=== PATIENT | male | born 1975 | race Caucasian/White ===

== ENCOUNTER 2020-08-14 14:43 | Emergency (ER) | payer SELFPAY ==
[2020-08-14 14:44] VITALS: BP 148/99; PULSE 112; RESP 23; TEMP 36.6; O2SAT 96; BMI 31.5
--- NOTE | 2020-08-14 14:48 | CT_ITS ---
STUDY: CT BRAIN WITHOUT CONTRAST REASON FOR EXAM: Male, 45 years old. Head injury RADIATION DOSAGE (If Supplied By Facility): CTDIvol = ( 44.99 ) mGy, DLP = ( 829.85 ) mGycm TECHNIQUE: Transaxial CT imaging of the brain was performed without administration of intravenous contrast material. Individualized dose optimization techniques were used for this CT. COMPARISON: No relevant priors. FINDINGS: Moderate size scalp hematoma overlying the right parietal bone. Normal calvarium. Normal size ventricles and extra-axial spaces for the patient''s age. Normal white matter tracts of the cerebral hemispheres. Normal basal ganglia and thalami. Normal brainstem. Normal cerebellum. There is no intracranial hemorrhage. There are no findings of an acute ischemic infarction. Normal visualized paranasal sinuses. CT/Brain/Head without Contrast IMPRESSION: Moderate sized scalp hematoma overlying the right parietal bone. Electronically Signed: Ravi Rios MD at 15:41 EDT , Service support ,
--- NOTE | 2020-08-14 14:49 | CT_ITS ---
STUDY: CT CERVICAL SPINE WITHOUT CONTRAST REASON FOR EXAM: Male, 45 years old. Neck pain from fall RADIATION DOSAGE (If Supplied By Facility): CTDIvol = ( 22.22 ) mGy, DLP = ( 511.96 ) mGycm TECHNIQUE: High resolution transaxial imaging was performed without contrast material. Sagittal and coronal images were reconstructed. Individualized dose optimization techniques were used for this CT. COMPARISON: None FINDINGS: Normal craniovertebral junction. Normal anterior atlantoaxial articulation. Normal odontoid process. There is straightening of the normal cervical lordosis. Normal vertebral bodies and posterior osseous elements. C2-3: Normal endplates. Normal disc height and morphology. Normal central canal and intervertebral neuroforamina. C3-4: Normal endplates. Normal disc height and morphology. Normal central canal and intervertebral neuroforamina. C4-5: Normal endplates. Normal disc height and morphology. Normal central canal and intervertebral neuroforamina. C5-6: Moderate degree of disc space narrowing with anterior spondylosis. C6-7: Normal endplates. Normal disc height and morphology. Normal central canal and intervertebral neuroforamina. C7-T1: Normal endplates. Normal disc height and morphology. Normal central canal and intervertebral neuroforamina. Normal visualized soft tissue structures. CT/Spine Cervical without Contras IMPRESSION: Moderate degree of disc space narrowing and spondylosis at the C5-C6 level. Electronically Signed: Ravi Rios MD at 15:42 EDT , Service support ,
--- NOTE | 2020-08-14 14:53 | ED.VIS.GEN ---
History of Present Illness Chief Complaint: Seizure Informant: Patient Narrative: 45-year-old male with past medical history of epilepsy presents with concern for head injury and seizure. Patient was at work when he fell and began having a seizure lasting less than 1 minute. EMS was called after there was significant blood on scene following a scalp laceration. Patient states he takes Keppra and has been compliant with his medication. Denies any recent changes to his medication. Admits to a headache. Denies any vision change. Does admit to neck pain. Patient is not on anticoagulation. Past Medical History - Allergies and Home Meds Allergies/Adverse Reactions: Allergies amoxicillin Allergy (Verified 08/14/20 14:44) PT UNSURE OF REACTION Primary Care Physician: NOT,DEFINED [Primary Care Provider] - Prior records reviewed: Yes Past Medical History: - - seizures Surgical History: no surgical history Lives: Alone Smoking Status: Current every day smoker Alcohol: None Drugs: None Review of Systems General: Denies: Chills, Fever, Sweats Eyes: Denies: Visual changes - bilaterally, Diplopia ENT: Denies: Rhinorrhea, Sore throat Cardiovascular: Denies: Chest pain, Palpitations Respiratory: Denies: Dyspnea, Cough, Dyspnea on exertion Gastrointestinal: Denies: Abdominal pain, Nausea, Vomiting, Diarrhea, Melena, Hematochezia Genitourinary: Denies: Dysuria, Hematuria, Frequency Musculoskeletal: Denies: Back pain, Extremity Pain Skin: Reports: Wounds. Denies: Rash Neurological: Reports: - - seizure. Denies: Headache, Weakness, Numbness Physical Exam Vital Signs/Narrative: Vital Signs Temp Pulse Resp BP Pulse Ox 08/14/20 14:44 98 F 112 H 23 H 148/99 H 96 Inital Vital Signs reviewed: Yes General: Well nourished, Well developed, No Acute Distress Head: Normocephalic, - - large scalp laceration Eyes: Perrl, EOMI ENT: Moist mucous membranes, No rhinorrhea Neck: Supple, Nontender Cardiovascular: Regular rate, Regular rhythm, No murmurs Respiratory: No distress, CTA bilaterally, Chest nontender Abdomen: Soft, Nontender, Nondistended, Normal bowel sounds Back: Nontender, Normal Inspection Extremities: Nontender, No edema Skin: Normal color, No rash Neurological: Alert, Oriented x3, Cranial nerves II-XII grossly intact, Normal Strength, Normal Sensation Psychological: Normal affect, Normal Mood Diagnostic/Tx/Re-eval Clinical Impression(s) from Imaging Studies Brain CT 08/14/20 14:48 IMPRESSION: Moderate sized scalp hematoma overlying the right parietal bone. Electronically Signed: Ravi Rios MD at 15:41 EDT , Service support , Cervical Spine CT 08/14/20 14:49 IMPRESSION: Moderate degree of disc space narrowing and spondylosis at the C5-C6 level. Electronically Signed: Ravi Rios MD at 15:42 EDT , Service support , Laboratory Data 08/14/20 08/14/20 15:00 15:00 WBC 8.6 RBC 3.82 L Hgb 13.5 Hct 40.3 MCV 105.5 H MCH 35.3 H MCHC 33.5 RDW Std Deviation 47.1 H RDW Coeff of Kendall 12.0 Plt Count 156 MPV 10.4 Immature Gran % (Auto) 0.400 Neut % (Auto) 79.0 H Lymph % (Auto) 14.4 L Swain % (Auto) 5.8 Eos % (Auto) 0.0 Baso % (Auto) 0.4 Absolute Neuts (auto) 6.8 Absolute Lymphs (auto) 1.23 Nucleated RBC % 0 Sodium 134 L Potassium 3.8 Chloride 98 Carbon Dioxide 17.0 L Anion Gap 19 H BUN 7 Creatinine 1.19 Estim Creat Clear Calc 87.85 Est GFR (MDRD) Af Amer 86 Est GFR (MDRD) Non-Af 71 BUN/Creatinine Ratio 5.9 L Glucose 148 H Calcium 8.7 Total Bilirubin 0.60 AST 154 H ALT 93 H Alkaline Phosphatase 68 Total Protein 7.7 Albumin 3.5 Globulin 4.2 Albumin/Globulin Ratio 0.8 L - Medical Decision Making Patient appears well and nontoxic. CT brain and cervical spine shows no acute process. Patient had his c-collar cleared by myself. Patient has approximately 8 to 9 cm parietal scalp laceration. This was thoroughly cleansed. Patient had his tetanus updated. Seven 2-0 sutures were placed in a simple interrupted fashion without difficulty. The wound was anesthetized with 1% lidocaine with epinephrine using 20 mL of the solution. Spoke with the patient's neurologist Dr. Kapoor who advised increasing his Keppra to 1000 twice daily. Patient will follow up in the next 3 to 5 days. Asked to return for vomiting, further seizure activity, confusion. Advised on not bathing, swimming, driving, any other activities where a seizure might put his life at risk. Stable at time of discharge. Impression: 1. Breakthrough seizure 2. Closed head injury 3. Scalp laceration?8 cm?7 interrupted sutures ED Disposition - Plan for ED Patient: Disposition: Home or Assisted Living Instructions: ED Seizure, Recurrent (Adult), ED Laceration Scalp Sutr Stap Ch Referrals: Matthew Kapoor, DO [NON-STAFF] - 3-5 Days Additional Instructions: Please increase your Keppra from 500 twice a day to 1000 mg twice a day.
[2020-08-14] MEDS: 0.9% Normal Saline 1,000 ML 1000 ML IV (15:02)
[2020-08-14] MEDS: Morphine 4 MG/ML Syringe IV (15:08)
[2020-08-14] MEDS: Ondansetron 4 MG/2 ML Vial IV (15:08)
[2020-08-14] MEDS: Diphth,Pertuss(Acell),Tet Vac 0.5 ML Vial IM (15:08)
[2020-08-14 15:10] VITALS: BP 141/87; PULSE 102; RESP 18; O2SAT 95
[2020-08-14 15:20] LABS: Absolute Lymphocyte Count 1.23 X10^3/uL (0.83-4.51); Absolute Neutrophil Count 6.8 X10^3/uL (2.0-7.7); Basophil# 0.03 X10^3/uL; Basophil% 0.4 % (0-1); Hematocrit 40.3 % (40-54); Hemoglobin 13.5 g/dL (13.0-16.5); Lymphocyte # 1.23 X10^3/ul (0.83-4.51); Lymphocyte % 14.4 % (19-41); Mean Corp Hgb Conc 33.5 g/dL (32-36); Mean Corpuscular Hgb 35.3 pg (27.0-32.0); Mean Corpuscular Volume 105.5 fL (80-94); Mean Platelet Vol. 10.4 fl (6.2-12.0); Monocyte% 5.8 % (0-10); NRBC Flagged by Analyzer 0 % (0-5); Neutrophil # 6.77 X10^3/uL (2.7-7.7); Platelet Count 156 K/mm3 (150-450); RBC Distribution Width SD 47.1 fl (35.1-43.9); Red Blood Count 3.82 M/mm3 (4.6-6.2); White Blood Count 8.6 K/mm3 (4.4-11.0)
[2020-08-14 15:41] LABS: ALB/GLOB Ratio 0.8 RATIO (0.9-2.4); AST(SGOT) 154 U/L (15-37); Alanine Aminotransfer ALT/SGPT 93 U/L (16-61); Albumin, Serum 3.5 g/dL (3.2-5.0); Alkaline Phosphatase 68 U/L (45-117); Anion Gap 19 (5-15); BUN 7 mg/dL (7-18); BUN/Creat Ratio 5.9 RATIO (10-20); Calcium,Total 8.7 mg/dL (8.5-10.1); Chloride 98 mmol/L (98-107); Creatinine, Serum 1.19 mg/dL (0.70-1.30); EST Glomerular Filtration Rate 71 mL/min (>60); Est Glom Filt Rate - Afr Amer 86 mL/min (>60); Estimated Creatinine Clearance 87.85 ml/min; Globulin 4.2 g/dL (2.2-4.2); Glucose 148 mg/dL (74-106); Potassium 3.8 mmol/L (3.5-5.1); Protein, Total 7.7 g/dL (6.4-8.2); Sodium Level 134 mmol/L (136-145)
[2020-08-14] MEDS: Lidocaine 1% /Epi 1:100 (20ml) 20 ML Vial 10 ML INFILT (16:13)
[2020-08-14 16:52] VITALS: BP 155/84; PULSE 86; RESP 18; O2SAT 98
[2020-08-14 17:36] VITALS: BP 141/70; PULSE 100; RESP 18; O2SAT 100
[2020-08-18 17:30] LABS: KEPPRA (LEVETIRACETAM) 5.1 ug/mL (10.0-40.0)
== END 2020-08-14 17:38 | disposition home or self-care (01) ==
PROVIDERS: Emergency Provider Emergency Medicine
DX: S01.01XA Laceration without foreign body of scalp, initial encounter (principal); G40.909 Epilepsy, unspecified, not intractable, without status epilepticus; F17.200 Nicotine dependence, unspecified, uncomplicated; Z23 Encounter for immunization; W18.30XA Fall on same level, unspecified, initial encounter; Y93.89 Activity, other specified; Y92.89 Other specified places as the place of occurrence of the external cause; Y99.8 Other external cause status
CPT/HCPCS: 12004; 70450; 72125; 80053; 80177; 85025; 90471; 90715; 96361; 96374; 96375; 99285; J2405

== ENCOUNTER 2022-04-07 19:29 | Inpatient (IN) | payer MEDICAID, SELFPAY ==
[2022-04-07 19:32] VITALS: BMI 25.6
[2022-04-07 19:46] VITALS: PULSE 88
[2022-04-07 19:55] VITALS: BP 127/89; PULSE 92; RESP 18; TEMP 36.9; O2SAT 100
[2022-04-07 21:00] LABS: Hematocrit 18.4 % (40-54)
--- NOTE | 2022-04-07 21:38 | PCM.HP.STD ---
HPI - General General Date of Admission: 04/07/22 Date of Service: 04/07/22 Chief Complaint: Shortness of breath HPI Narrative CHRISTI GALINDO, is a 46 M with a significant history of alcoholism; traumatic brain injury; seizures and PTSD who presented to outside hospital with shortness of breath. Reportedly his shortness of breath increased with mild exertion. Associated with his symptoms is lightheadedness; presyncope and diaphoresis. He reports anorexia. His symptoms started about 5 days ago and it is been progressively getting worse. He reported [place] the airport and found [place] got delayed. He reported that while in a queue at the hospital some 2 nurses who were behind him found that he was diaphoretic. He reports going to clinic in [place]. On the day of presentation patient was sent to [facility] ED by paramedics. Reportedly at [facility] ED patient was found to be anemic with a hemoglobin of 5.5. Stool guaic was negative. Magnesium was low for which reason patient had a 4 g of magnesium at outside hospital. Sodium was 132. Potassium was 2.6 and and reportedly patient was given IV potassium at outside hospital. Patient was tachycardic but responded to IV fluid boluses. CMP showed elevated AST of 163 (normal 15-37); normal ALT; total bilirubin of 1.7 (normal 0.2-1); direct bilirubin of 0.6 (normal 0-0.2). Lactic acid was 6. Ammonia was 40 3 (normal 11-32). Lipase 446. Alcohol level was 9. PTT was 27.2 (normal 25.4-38.4). INR was 1.3 (normal 0.8-1.2); PT was 14.7 (normal 9.3-14.1). Patient was given thiamine and Ativan IV. Patient was transfused with blood. Reportedly because of possible blood reaction he did not receive all red blood cell products that was intended for him. [facility] Medical History Alcohol abuse Cirrhosis GERD (gastroesophageal reflux disease) Migraines Seizures Smoker Home Medications levetiracetam 500 mg tablet 500 mg PO BID seizures 08/14/20 [History Last Taken 04/07/22 17:40] Allergy/AdvReac Type Severity Reaction Status Date / Time amoxicillin Allergy Anaphylaxis Verified 04/07/22 19:35 bee venom protein (honey bee) Allergy Hives Verified 04/07/22 19:35 [bee sting] Family History Other Cancer Surgical History History of herniorrhaphy History of removal of thyroglossal duct cyst Social History Smoking Status: Heavy Smoker (>10/day) ROS ROS Narrative Pertinent positives and pertinent negatives as noted in HPI. All other systems were reviewed and are negative Vital Signs Vital Signs Vital Signs: 04/07/22 19:55 04/07/22 19:59 Temperature 98.4 F Temperature Source Oral Pulse Rate 92 Respiratory Rate 18 Respiratory Effort Normal Non-Labored Respiratory Depth Normal Respiratory Pattern Normal Blood Pressure 127/89 H Blood Pressure Mean 101 Blood Pressure Source Monitor Blood Pressure Position Semi-Fowlers Blood Pressure Location Right Arm Pulse Ox 100 Oxygen Delivery Method Room Air Room Air Weight Weight: 88.1 kg Body Mass Index (BMI) 25.6 Physical Exam Narrative Physical exam: General: Well-nourished, well-developed. Head: Normocephalic, atraumatic, no tenderness Eyes: Vision is grossly intact. EOMI ENT, no trauma, moist mucous membranes, no rhinorrhea Neck: Nontender, No thyromegaly. CVS: Regular rate and rhythm. S1-S2 present. No murmur, gallop or rub. Respiratory : clear to auscultation bilaterally, chest wall nontender, no wheezing Abdomen: Soft, nontender, nondistended, normal bowel sounds, no masses : Deferred Back: Nontender, no CVA tenderness, no midline spinal tenderness, deformities, step-offs Extremities: Nontender full range of motion, no trauma Skin: Normal color, no trauma, abrasions Neuro: Alert, oriented, cranial nerves II through XII grossly intact. Psychiatry: Appears agitated and anxious Results Lab / Micro Data Result Diagrams: 04/07/22 20:49 Assessment & Plan Assessment/Plan (1) Anemia: (2) Alcoholism: PLAN: Plan Anemia With symptomatology likely acute. H&H repeated on arrival at our hospital ([facility]) was 6.0. Transfuse 1 unit of blood. Check H&H 1 after transfusion. Occult stools ordered. Reportedly occult stool at outside hospital was negative. Alcoholism/elevated liver enzymes/hyperbilirubinemia/hyperammonemia Check ultrasound of right upper quadrant. CIWA protocol with as needed Ativan ordered. Thiamine and folic acid ordered. Trend ammonia level. GI consult. Hypomagnesemia Magnesium level 0.7 at at the hospital. Reportedly received 4 g of magnesium. Trend magnesium level. Hypokalemia Replaced at outside hospital. Trend CMP. Lactic acidosis Lactic acid of 6 at outside hospital. Likely secondary poor clearance from liver disease. Tobacco abuse Counseled Declined nicotine patch. DVT prophylaxis: SCDs ordered. Charges/Coding Visit Charges Inpatient E&M: 15712 Init Hosp L3
[2022-04-07 22:17] LABS: Platelet Count 185 K/mm3 (150-450); RET-HE 24.3 pg (30-35); Reticulocyte Count 0.28 % (0.5-1.5)
[2022-04-07 22:25] LABS: Vitamin B12 420 pg/mL (211-911)
[2022-04-07 22:34] LABS: Iron 304 ug/dL (65-175); Iron Binding Capacity,Total 328 ug/dL (250-450); LDH 155 U/L (87-241); PERCENT IRON SATURATION 92.7 % (15.0-55.0)
[2022-04-07 22:54] VITALS: BP 114/86; PULSE 94; RESP 16; TEMP 36.8; O2SAT 99
[2022-04-07 23:10] VITALS: BP 124/75; PULSE 88; RESP 16; TEMP 36.5; O2SAT 99
[2022-04-07 23:17] LABS: Lactic Acid 2.1 mmol/L (0.4-1.9)
[2022-04-08] VITALS (11 sets, daily range): BP systolic 101–121; BP diastolic 69–95; PULSE 86–106; RESP 16–18; TEMP 36.2–36.7; O2SAT 95–100
[2022-04-08] MEDS: LORazepam 2 MG/ML Syringe IV ×5 (01:11→20:49)
[2022-04-08] MEDS: 0.9% Saline Lock 10 ML Syringe IV ×5 (01:12→23:03)
[2022-04-08 02:33] LABS: Reflex Lactate? Y
[2022-04-08 03:10] LABS: Absolute Lymphocyte Count 0.44 X10^3/uL (0.83-4.51); Absolute Neutrophil Count 4.6 X10^3/uL (2.0-7.7); Eosinophil# 0.01 X10^3/uL; Eosinophils% 0.2 % (0-5); Hematocrit 23.9 % (40-54); Hemoglobin 7.6 g/dL (13.0-16.5); Lymphocyte # 0.44 X10^3/ul (0.83-4.51); Lymphocyte % 8.4 % (19-41); Mean Corp Hgb Conc 31.8 g/dL (32-36); Mean Corpuscular Hgb 27.8 pg (27.0-32.0); Mean Corpuscular Volume 87.5 fL (80-94); Mean Platelet Vol. 10.5 fl (6.2-12.0); Monocyte# 0.15 X10^3/uL; Monocyte% 2.9 % (0-10); NRBC Flagged by Analyzer 0 % (0-5); Neutrophil # 4.61 X10^3/uL (2.7-7.7); Neutrophil % 87.9 % (47-70); POSITIVE COUNT YES; POSITIVE DIFFERENTIAL YES; POSITIVE MORPHOLOGY YES; Platelet Count 135 K/mm3 (150-450); RBC Distribution Width CV 21.7 % (11.6-14.6); RBC Distribution Width SD 69.4 fl (35.1-43.9); Red Blood Count 2.73 M/mm3 (4.6-6.2); White Blood Count 5.2 K/mm3 (4.4-11.0)
[2022-04-08 03:12] LABS: Differential Indicated SCAN CRITERIA MET
[2022-04-08 03:34] LABS: Lactic Acid 1.8 mmol/L (0.4-1.9)
[2022-04-08 03:37] LABS: Anisocytosis 1+; Differential Comment SCANNED; Hypochromasia 1+; Microcytosis 1+; Platelet Estimate ADEQUATE (ADEQ)
[2022-04-08 03:39] LABS: ALB/GLOB Ratio 0.7 RATIO (0.9-2.4); AST(SGOT) 97 U/L (15-37); Alanine Aminotransfer ALT/SGPT 14 U/L (16-61); Alkaline Phosphatase 97 U/L (45-117); Anion Gap 9 (5-15); BUN 10 mg/dL (7-18); BUN/Creat Ratio 15.5 RATIO (10-20); Calcium,Total 8.3 mg/dL (8.5-10.1); Chloride 98 mmol/L (98-107); Creatinine, Serum 0.65 mg/dL (0.70-1.30); EST Glomerular Filtration Rate 142 mL/min (>60); Est Glom Filt Rate - Afr Amer 172 mL/min (>60); Globulin 4.6 g/dL (2.2-4.2); Glucose 152 mg/dL (74-106); Magnesium 1.8 mg/dL (1.6-2.6); Potassium 3.6 mmol/L (3.5-5.1); Protein, Total 7.6 g/dL (6.4-8.2); Sodium Level 130 mmol/L (136-145)
[2022-04-08] MEDS: Phenobarbital 32.4 MG Tablet 97.2 MG PO ×5 (03:53→20:49)
[2022-04-08] MEDS: Haloperidol Lactate 5 MG/ML Vial 2 MG IV ×2 (04:03→04:24)
[2022-04-08] MEDS: LORazepam 2 MG/ML Syringe 4 MG IV (04:45)
--- NOTE | 2022-04-08 05:55 | US_ITS ---
STUDY: ABDOMINAL ULTRASOUND - RIGHT UPPER QUADRANT REASON FOR VISIT: Male, 46 years old Elevated liver enzymes TECHNIQUE: Ultrasound evaluation of the right upper quadrant was performed with real-time and static harris-scale imaging. TECHNICAL QUALITY: Limited. Examination limited due to the patient?s condition. COMPARISON: None. FINDINGS: Liver: The liver is enlarged and measures 18.8 cm. There is increased echogenicity consistent with fatty infiltration. The bile ducts are within normal limits. There is hepatic color flow. The direction of portal flow is hepatopetal. There is no demonstrated mass lesion. Gallbladder: Normal distended gallbladder. The gallbladder wall measures 1.1 mm. There is a negative sonographic Merino''s sign. There is no pericholecystic fluid. There are no gallstones. Sludge is seen in the gallbladder lumen. Common Bile Duct (C.B.D.): The common bile duct measures 6.5 mm. Pancreas: Normal size of the head, body and tail of the pancreas. There is normal echogenicity of the pancreas. There is no demonstrated pancreatic mass or cyst. Right Kidney: Normal size of the right kidney. The right kidney measures 10.7 cm x 5.2 cm x 5.9 cm. Normal renal cortex. The right cortex measures 1.4 cm. There is no demonstrated renal mass or cyst. There is no right hydronephrosis. US/Liver IMPRESSION: Hepatomegaly and fatty infiltration of the liver. Electronically Signed: Ravi Rios MD at 15:02 EST ,
--- NOTE | 2022-04-08 06:58 | CT_ITS ---
STUDY: CT ABDOMEN AND PELVIS WITH CONTRAST REASON FOR EXAM: Male, 46 years old. Jaundice, acute liver injury. Alcohol withdrawal. Patient is combative. RADIATION DOSAGE (If Supplied By Facility): CTDIvol = ( 13.42 ) mGy, DLP = ( 1427.07 ) mGycm TECHNIQUE: Transaxial images were obtained from the dome of the diaphragm to the symphysis pubis without oral contrast. IV 100mL Isovue-300 was administered. Sagittal and coronal images were reconstructed. Individualized dose optimization techniques were used for this CT. COMPARISON: None. FINDINGS: Mild degree of increased markings at the lung bases suggests atelectasis. The visualized portions of the heart are within normal limits. There is decreased attenuation of the liver consistent with steatosis. Normal gallbladder and extrahepatic biliary system. Normal spleen. Normal pancreas. There is a small, circumscribed, smooth, low attenuation right adrenal mass, consistent with an adrenal adenoma. This measures 1.8 cm. Normal left adrenal gland. Normal right kidney. Normal left kidney. Normal visualized stomach. Normal small intestine. There are scattered colonic diverticula consistent with diverticulosis. The appendix is visualized and appears normal. There is diffuse atherosclerotic calcification of the abdominal aorta, without a demonstrated aneurysm. Normal inferior vena cava. There is borderline retroperitoneal lymphadenopathy with enlarged nodes no greater than 10mm in the short axis diameter. Normal urinary bladder. Prostatic calcification. Small amount of free fluid is seen in the cul-de-sac. Normal abdominal wall. There are degenerative changes of the visualized lumbar spine. CT/Abdomen/Pelvis W IV Cont ONLY IMPRESSION: Mild degree of bibasilar atelectasis. Diffuse fatty infiltration of the liver. Scattered sigmoid diverticula. Small right adrenal adenoma. Electronically Signed: Ravi Rios MD at 9:45 EST ,
--- NOTE | 2022-04-08 10:31 | PN.HOSP_ITS ---
Subjective Subjective Doing well, no issues overnight Objective Data Objective Data Vital Signs: Vital Signs Temp Pulse Resp BP Pulse Ox O2 Del Method 97.2 F L 95 18 119/80 96 Room Air 04/08/22 08:09 04/08/22 08:09 04/08/22 08:09 04/08/22 08:09 04/08/22 08:09 04/08/22 08:09 Oxygen Delivery Method Room Air Weight: 194 lb 3.636 oz Body Mass Index (BMI) 25.6 Intake & Output: Intake and Output for Last 24 Hours 04/07/22 04/08/22 04/09/22 03:59 03:59 03:59 Intake Total 400 / 400 50 / 50 Balance 400 / 400 50 / 50 Lab / Micro Data Result Diagrams: 04/08/22 03:00 04/08/22 03:00 Labs: Laboratory Results - last 24 hr 04/07/22 20:49: Hgb 6.0 L*, Hct 18.4 L 04/07/22 20:49: Blood Type A NEGATIVE, Antibody Screen NEGATIVE 04/07/22 20:49: Crossmatch See Detail 04/07/22 20:49: Retic Count 0.28 L, Immature Retic Fraction 10.30, Retic Hgb Equivalent 24.3 L 04/07/22 20:49: Vitamin B12 420 04/07/22 20:49: Iron 304 H, TIBC 328, Iron Saturation 92.7 H, Lactate Dehydrogenase 155, Folate 1.50 L 04/07/22 22:25: Lactic Acid 2.1 H* 04/08/22 03:00: WBC 5.2, RBC 2.73 L, Hgb 7.6 L, Hct 23.9 L, MCV 87.5, MCH 27.8, MCHC 31.8 L, RDW Std Deviation 69.4 H, RDW Coeff of Kendall 21.7 H, Plt Count 135 L, MPV 10.5, Immature Gran % (Auto) 0.600, Neut % (Auto) 87.9 H, Lymph % (Auto) 8.4 L, [place] % (Auto) 2.9, Eos % (Auto) 0.2, Baso % (Auto) 0.0, Absolute Neuts (auto) 4.6, Absolute Lymphs (auto) 0.44 L, Nucleated RBC % 0, Differential Comment SCANNED, Platelet Estimate ADEQUATE, Hypochromasia 1+, Anisocytosis 1+, Microcytosis 1+ 04/08/22 03:00: Sodium 130 L, Potassium 3.6, Chloride 98, Carbon Dioxide 23.0, Anion Gap 9, BUN 10, Creatinine 0.65 L, Estim Creat Clear Calc 163.90, Est GFR (MDRD) Af Amer 172, Est GFR (MDRD) Non-Af 142, BUN/Creatinine Ratio 15.5, Glucose 152 H, Calcium 8.3 L, Magnesium 1.8, Total Bilirubin 2.50 H, AST 97 H, ALT 14 L, Alkaline Phosphatase 97, Total Protein 7.6, Albumin 3.0 L, Globulin 4.6 H, Albumin/Globulin Ratio 0.7 L 04/08/22 03:00: Ammonia 62.0 H 04/08/22 03:00: Lactic Acid 1.8 Radiography Diagnostic Testing: Radiology Impression Abdomen/Pelvis CT 04/08/22 06:58 IMPRESSION: Mild degree of bibasilar atelectasis. Diffuse fatty infiltration of the liver. Scattered sigmoid diverticula. Small right adrenal adenoma. Electronically Signed: Ravi Rios MD at 9:45 EST , Physical Exam Narrative General: Alert, Oriented x3, Cooperative, No apparent distress HEENT: Atraumatic, PERRLA, EOMI, Normocephalic Oral: Moist Mucosa Neck: Supple, No JVD Lungs: Clear to auscultation, Normal air movement, No rhonchi, No wheeze, No rales Cardiovascular: Regular rate, Regular Rhythm, Normal S1, Normal S2, No murmurs Abdomen: Soft, Non Tender, Non-Distended, No Hepato-splenomegaly Extremities: No edema, Capillary Refill Less than 3 Seconds Skin: No rashes, No breakdown Musculoskeletal: No Tenderness to Palpation of Joints or Extremities Neurological: Cranial nerves II-XII grossly intact, Motor Exam 5/5 strength throughout, Sensory exam intact to light touch and pain Psych/Mental Status: Flat affect, Appropriate Assessment & Plan Assessment/Plan (1) Anemia: (2) Alcoholism: PLAN: Plan 1. Anemia possibly due to his low folate secondary to history of alcoholism/elevated LFTs with hyperbilirubinemia ? His folic acid is low so we will replace he was given 1 unit of PRBCs ? Hemoglobin now 7.6 we will continue to monitor ? We will consult gastroenterology for assistance with his liver disease, Hemoccult at the outside hospital was negative will repeat here ? Continue with the CIWA protocol and Ativan as necessary 2. History of seizures ? Continue with Keppra 3. Tobacco abuse ?Counseled ?Declined nicotine patch. DVT: SCDs Charges/Coding Visit Charges Inpatient E&M: 02051 Subs Hosp L2
--- NOTE | 2022-04-08 10:53 | NURSING ---
Pt refusing to wear security monitor. Dr. Villalobos notified.
[2022-04-08] MEDS: levETIRAcetam 500 MG Tablet PO (11:24)
[2022-04-08 13:36] LABS: International Normalized Ratio 1.3; Prothrombin Time (Protime)PT. 15.6 SECONDS (11.7-14.9)
--- NOTE | 2022-04-08 13:52 | CASEMGMT ---
Unable to complete RN CM assessment d/t pt lethargy/withdrawal symptoms. CM to attempt again at another time. [place] RN CM
--- NOTE | 2022-04-08 17:09 | CON.PCM.GI_ITS ---
HPI Consult Data Date of Consult: 04/08/22 HPI Narrative Reason for Consultation: Anemia HPI Narrative: CHRISTI GALINDO, is a 46 M with a significant history of alcoholism; traumatic brain injury; seizures and PTSD who presented to outside hospital with shortness of breath.? Reportedly his shortness of breath increased with mild exertion.? A ssociated with his symptoms is lightheadedness; presyncope and diaphoresis.? He reports anorexia.? His symptoms started about 5 days ago and it is been progressively getting worse. Almost all of the history is obtained from the patient's chart as the patient is sedated. He reported [place] the airport.? He reported that while in a queue at the hospital some 2 nurses who were behind him found that he was diaphoretic.? He reports going to clinic in [place]. Patient was sent to [facility] ED by paramedics. At [facility] ED patient was found to be anemic with a hemoglobin of 5.5. Stool guaic was negative.? Magnesium was low for which reason patient had a 4 g of magnesium at outside hospital.? Sodium was 132.? Potassium was 2.6 and and reportedly patient was given IV potassium at outside hospital.? Patient was tachycardic but responded to IV fluid boluses.? CMP showed elevated AST of 163 (normal 15-37); normal ALT; total bilirubin of 1.7 (normal 0.2-1); di rect? bilirubin of 0.6 (normal 0-0.2).? Lactic acid was 6.? Ammonia was 40 3 (normal 11-32).? Lipase 446.? Alcohol level was 9.? PTT was 27.2 (normal 25.4- 38.4).? INR was 1.3 (normal 0.8-1.2); PT was 14.7 (normal 9.3-14.1). Patient was given thiamine and Ativan IV.? Patient was transfused with blood. Reportedly because of possible blood reaction he did not receive all red blood cell products that was intended for him. His lab work currently shows a normocytic anemia and previously had a macrocytic anemia. His folic acid was checked and his B12 was checked. His folic acid level was low. I cannot been on any medicines to deplete his folic acid. [facility] Medical History Alcohol abuse Cirrhosis GERD (gastroesophageal reflux disease) Migraines Seizures Smoker Home Medications levetiracetam 500 mg tablet 500 mg PO BID seizures 08/14/20 [History Last Taken 04/07/22 17:40] Allergy/AdvReac Type Severity Reaction Status Date / Time amoxicillin Allergy Anaphylaxis Verified 04/07/22 19:35 bee venom protein (honey bee) Allergy Hives Verified 04/07/22 19:35 [bee sting] Family History Other Cancer Surgical History History of herniorrhaphy History of removal of thyroglossal duct cyst Social History Smoking Status: Heavy Smoker (>10/day) ROS ROS Narrative Pertinent positives and pertinent negatives as noted in HPI. All other systems were reviewed and are negative Physical Exam Narrative General: Alert, Oriented x3, Cooperative, No apparent distress HEENT: Atraumatic, PERRLA, EOMI, Normocephalic Oral: Moist Mucosa Neck: Supple, No JVD Lungs: Clear to auscultation, Normal air movement, No rhonchi, No wheeze, No rales Cardiovascular: Regular rate, Regular Rhythm, Normal S1, Normal S2, No murmurs Abdomen: Soft, Non Tender, Non-Distended, No Hepato-splenomegaly Extremities: No edema, Capillary Refill Less than 3 Seconds Skin: No rashes, No breakdown Musculoskeletal: No Tenderness to Palpation of Joints or Extremities Neurological: Cranial nerves II-XII grossly intact, Motor Exam 5/5 strength throughout, Sensory exam intact to light touch and pain Psych/Mental Status: Flat affect, Appropriate Lab / Micro Data Result Diagrams: 04/08/22 03:00 04/08/22 03:00 Labs: Laboratory Results - last 24 hr 04/07/22 20:49: Hgb 6.0 L*, Hct 18.4 L 04/07/22 20:49: Blood Type A NEGATIVE, Antibody Screen NEGATIVE 04/07/22 20:49: Crossmatch See Detail 04/07/22 20:49: Retic Count 0.28 L, Immature Retic Fraction 10.30, Retic Hgb Equivalent 24.3 L 04/07/22 20:49: Vitamin B12 420 04/07/22 20:49: Iron 304 H, TIBC 328, Iron Saturation 92.7 H, Lactate De hydrogenase 155, Folate 1.50 L 04/07/22 22:25: Lactic Acid 2.1 H* 04/08/22 03:00: WBC 5.2, RBC 2.73 L, Hgb 7.6 L, Hct 23.9 L, MCV 87.5, MCH 27.8, MCHC 31.8 L, RDW Std Deviation 69.4 H, RDW Coeff of Kendall 21.7 H, Plt Count 135 L, MPV 10.5, Immature Gran % (Auto) 0.600, Neut % (Auto) 87.9 H, Lymph % (Auto) 8.4 L, [place] % (Auto) 2.9, Eos % (Auto) 0.2, Baso % (Auto) 0.0, Absolute Neuts (auto) 4.6, Absolute Lymphs (auto) 0.44 L, Nucleated RBC % 0, Differential Comment SCANNED, Platelet Estimate ADEQUATE, Hypochromasia 1+, Anisocytosis 1+, Microcytosis 1+ 04/08/22 03:00: Sodium 130 L, Potassium 3.6, Chloride 98, Carbon Dioxide 23.0, Anion Gap 9, BUN 10, Creatinine 0.65 L, Estim Creat Clear Calc 163.90, Est GFR (MDRD) Af Amer 172, Est GFR (MDRD) Non-Af 142, BUN/Creatinine Ratio 15.5, Glucose 152 H, Calcium 8.3 L, Magnesium 1.8, Total Bilirubin 2.50 H, AST 97 H, ALT 14 L, Alkaline Phosphatase 97, Total Protein 7.6, Albumin 3.0 L, Globulin 4.6 H, Albumin/Globulin Ratio 0.7 L 04/08/22 03:00: Ammonia 62.0 H 04/08/22 03:00: Lactic Acid 1.8 04/08/22 11:23: PT 15.6 H, INR 1.3 Radiology Impression Liver Ultrasound 04/08/22 05:55 IMPRESSION: Hepatomegaly and fatty infiltration of the liver. Electronically Signed: Ravi Rios MD at 15:02 EST , Abdomen/Pelvis CT 04/08/22 06:58 IMPRESSION: Mild degree of bibasilar atelectasis. Diffuse fatty infiltration of the liver. Scattered sigmoid diverticula. Small right adrenal adenoma. Electronically Signed: Ravi Rios MD at 9:45 EST , Assessment & Plan Assessment/Plan (1) Alcoholism: PLAN: Excessive alcohol use or alcohol abuse has been renamed alcohol use disorder. AUD is the most common cause of ALD, and includes binge drinking, heavy drinking, and any alcohol use by women or anyone younger than 45 years of age. His MADRE is currently score is 23. He does not need steroids, pentoxifylline or N-acetylcysteine at this time. I will monitor his LFTs and if they continue to rise he may need initiation of medical therapy. (2) Anemia: PLAN: Is folic acid could be secondary to seizure medicines and his alcoholism. And has a BMI of 25. I suspect that he has a sufficient diet to maintain a folic acid level even if most of his calories are from alcohol. Folic acid deficiency is associated with elevated levels of homocysteine, and this phenomenon appears to be prominent in those receiving enzyme-inducing AEDs. Homocysteine levels are elevated both at fasting and after methionine loading in persons receiving CBZ, PHT, phenobarbital , and primidone . Adults receiving VPA, an inhibitor of cytochrome P450 enzymes, had lower homocysteine levels fasting and after methionine loading than did controls?, although children on VPA had low folic acid and elevated homocysteine levels?. In one study of persons receiving CBZ or PHT for epilepsy, folic acid levels were lowest and homocysteine levels highest in persons homozygous for a common mutation in the methylenetetrahydrofolate gene?. This suggests that drug-gene interactions may predict folate and homocysteine changes in response to AEDs. I would ask Neurology to assess him for folic acid deficiency, labs for Celiac disease ( mal absorption of B12/folic acid/Iron), Homocysteine. Outpatient GI and Hemotology (hemolysis) work up for anemia Charges/Coding Visit Charges Inpatient E&M: 44114 Init Hosp L3
[2022-04-08] MEDS: Haloperidol Lactate 5 MG/ML Vial 4 MG IV (23:03)
[2022-04-09] VITALS (14 sets, daily range): BP systolic 97–131; BP diastolic 65–98; PULSE 67–96; RESP 16–18; TEMP 36.1–36.8; O2SAT 96–100
[2022-04-09] MEDS: Phenobarbital 32.4 MG Tablet PO ×6 (02:18→21:18)
[2022-04-09] MEDS: Haloperidol Lactate 5 MG/ML Vial 4 MG IV ×3 (03:21→21:06)
[2022-04-09] MEDS: LORazepam 2 MG/ML Syringe IV ×3 (03:21→16:25)
--- NOTE | 2022-04-09 03:38 | NURSING ---
Pt has been refusing the tele monitoring. aware.
[2022-04-09 07:19] LABS: Absolute Neutrophil Count 2.9 X10^3/uL (2.0-7.7); Basophil# 0.01 X10^3/uL; Basophil% 0.2 % (0-1); Eosinophil# 0.02 X10^3/uL; Eosinophils% 0.4 % (0-5); Hematocrit 20.1 % (40-54); Hemoglobin 6.4 g/dL (13.0-16.5); Lymphocyte % 32.1 % (19-41); Mean Corp Hgb Conc 31.8 g/dL (32-36); Mean Corpuscular Hgb 27.7 pg (27.0-32.0); Mean Platelet Vol. 10.4 fl (6.2-12.0); Monocyte% 4.3 % (0-10); NRBC Flagged by Analyzer 0.9 % (0-5); Neutrophil # 2.92 X10^3/uL (2.7-7.7); Neutrophil % 62.6 % (47-70); POSITIVE MORPHOLOGY YES; Platelet Count 185 K/mm3 (150-450); RBC Distribution Width CV 22.1 % (11.6-14.6); RBC Distribution Width SD 70.5 fl (35.1-43.9); Red Blood Count 2.31 M/mm3 (4.6-6.2); White Blood Count 4.7 K/mm3 (4.4-11.0)
[2022-04-09 07:22] LABS: Differential Indicated SCAN CRITERIA MET
[2022-04-09 07:47] LABS: ALB/GLOB Ratio 0.7 RATIO (0.9-2.4); AST(SGOT) 191 U/L (15-37); Alanine Aminotransfer ALT/SGPT 22 U/L (16-61); Albumin, Serum 2.6 g/dL (3.2-5.0); Alkaline Phosphatase 81 U/L (45-117); Anion Gap 6 (5-15); BUN 12 mg/dL (7-18); BUN/Creat Ratio 22.7 RATIO (10-20); Calcium,Total 8.4 mg/dL (8.5-10.1); Chloride 102 mmol/L (98-107); Creatinine, Serum 0.53 mg/dL (0.70-1.30); EST Glomerular Filtration Rate 179 mL/min (>60); Est Glom Filt Rate - Afr Amer 217 mL/min (>60); Estimated Creatinine Clearance 201.01 ml/min; Globulin 3.7 g/dL (2.2-4.2); Glucose 97 mg/dL (74-106); Potassium 3.2 mmol/L (3.5-5.1); Protein, Total 6.3 g/dL (6.4-8.2); Sodium Level 135 mmol/L (136-145)
[2022-04-09 07:50] LABS: Anisocytosis 1+; Differential Comment SCANNED
[2022-04-09] MEDS: levETIRAcetam 500 MG Tablet PO ×2 (08:01→21:11)
[2022-04-09] MEDS: hydrOXYzine PAM 25 MG Capsule 50 MG PO (08:01)
[2022-04-09] MEDS: 0.9% Saline Lock 10 ML Syringe IV ×5 (08:01→21:10)
[2022-04-09] MEDS: Thiamine Hydrochloride 100 MG Tablet PO (08:01)
[2022-04-09 09:01] LABS: Haptoglobin 170 mg/dL (23-355)
--- NOTE | 2022-04-09 09:06 | PN.HOSP_ITS ---
Subjective Subjective More alert today no issues overnight. His hemoglobin did drop again actively replacing his [place]. Objective Data Objective Data Vital Signs: Vital Signs Temp Pulse Resp BP Pulse Ox O2 Del Method 97.2 F L 82 18 102/72 97 Room Air 04/09/22 06:00 04/09/22 06:00 04/09/22 06:00 04/09/22 06:00 04/09/22 06:00 04/09/22 06:00 Oxygen Delivery Method Room Air Weight: 194 lb 3.636 oz Body Mass Index (BMI) 25.6 Intake & Output: Intake and Output for Last 24 Hours 04/08/22 04/09/22 04/10/22 03:59 03:59 03:59 Intake Total 400 / 400 550 / 550 Balance 400 / 400 550 / 550 Lab / Micro Data Result Diagrams: 04/09/22 07:03 04/09/22 07:03 Labs: Laboratory Results - last 24 hr 04/07/22 20:49: Crossmatch See Detail 04/07/22 22:25: Haptoglobin 170 04/08/22 11:23: PT 15.6 H, INR 1.3 04/09/22 07:03: WBC 4.7, RBC 2.31 L, Hgb 6.4 L, Hct 20.1 L, MCV 87.0, MCH 27.7, MCHC 31.8 L, RDW Std Deviation 70.5 H, RDW Coeff of Kendall 22.1 H, Plt Count 185, MPV 10.4, Immature Gran % (Auto) 0.400, Neut % (Auto) 62.6, Lymph % (Auto) 32.1, [place] % (Auto) 4.3, Eos % (Auto) 0.4, Baso % (Auto) 0.2, Absolute Neuts (auto) 2. 9, Absolute Lymphs (auto) 1.50, Nucleated RBC % 0.9, Differential Comment SCANNED, Anisocytosis 1+ 04/09/22 07:03: Sodium 135 L, Potassium 3.2 L, Chloride 102, Carbon Dioxide 27.0, Anion Gap 6, BUN 12, Creatinine 0.53 L, Estim Creat Clear Calc 201.01, Est GFR (MDRD) Af Amer 217, Est GFR (MDRD) Non-Af 179, BUN/Creatinine Ratio 22.7 H, Glucose 97, Calcium 8.4 L, Total Bilirubin 1.00, AST 191 H, ALT 22, Alkaline Phosphatase 81, Total Protein 6.3 L, Albumin 2.6 L, Globulin 3.7, Al bumin/Globulin Ratio 0.7 L Radiography Diagnostic Testing: Radiology Impression Liver Ultrasound 04/08/22 05:55 IMPRESSION: Hepatomegaly and fatty infiltration of the liver. Electronically Signed: Ravi Rios MD at 15:02 EST , Abdomen/Pelvis CT 04/08/22 06:58 IMPRESSION: Mild degree of bibasilar atelectasis. Diffuse fatty infiltration of the liver. Scattered sigmoid diverticula. Small right adrenal adenoma. Electronically Signed: Ravi Rios MD at 9:45 EST , Physical Exam Narrative General: Alert, Oriented x3, Cooperative, No apparent distress HEENT: Atraumatic, PERRLA, EOMI, Normocephalic Oral: Moist Mucosa Neck: Supple, No JVD Lungs: Clear to auscultation, Normal air movement, No rhonchi, No wheeze, No rales Cardiovascular: Regular rate, Regular Rhythm, Normal S1, Normal S2, No murmurs Abdomen: Soft, Non Tender, Non-Distended, No Hepato-splenomegaly Extremities: No edema, Capillary Refill Less than 3 Seconds Skin: No rashes, No breakdown Musculoskeletal: No Tenderness to Palpation of Joints or Extremities Neurological: Cranial nerves II-XII grossly intact, Motor Exam 5/5 strength throughout, Sensory exam intact to light touch and pain Psych/Mental Status: Flat affect, Appropriate Assessment & Plan Assessment/Plan (1) Anemia: (2) Alcoholism: PLAN: Plan 1. Anemia possibly due to his low folate secondary to history of alcoholism/elevated LFTs with hyperbilirubinemia ? His folic acid is low so we will replace with IV folate, will transfuse 2 units today ? Hemoglobin now 7.6 we will continue to monitor ? We will consult gastroenterology for assistance with his liver disease, Hemoccult at the outside hospital was negative will repeat here ? Continue with the CIWA protocol and Ativan as necessary 2. History of seizures ? Continue with Keppra ? Review of literature was found to Keppra does not have an effect on homocystine, vitamin B12, and folate levels 3. Tobacco abuse ?Counseled ?Declined nicotine patch. DVT: SCDs Charges/Coding Visit Charges Inpatient E&M: 40885 Subs Hosp L2
--- NOTE | 2022-04-09 09:13 | CASEMGMT ---
Pt still only alert to self and per nursing, unable to complete RN CM assessment. CM to follow. SStaten RN CM
[2022-04-09] MEDS: Potassium Chloride Oral Tablet 20 MEQ 60 MEQ PO (09:53)
--- NOTE | 2022-04-09 17:25 | PN_ITS ---
Subjective Subjective He is more alert today. He is still drowsy. He denies any abdominal pain Objective Data Objective Data Vital Signs: Vital Signs Temp Pulse Resp BP Pulse Ox O2 Del Method 97.6 F L 77 18 110/73 100 Room Air 04/09/22 16:52 04/09/22 16:52 04/09/22 16:52 04/09/22 16:52 04/09/22 16:52 04/09/22 16:52 Oxygen Delivery Method Room Air Weight: 194 lb 3.636 oz Body Mass Index (BMI) 25.6 Intake & Output: Intake and Output for Last 24 Hours 04/07/22 04/08/22 04/09/22 23:59 23:59 23:59 Intake Total 0 / 0 950 / 950 290.2 / 290.2 Balance 0 / 0 950 / 950 290.2 / 290.2 Lab / Micro Data Result Diagrams: 04/09/22 07:03 04/09/22 07:03 Labs: Laboratory Results - last 24 hr 04/07/22 20:49: Crossmatch See Detail 04/07/22 22:25: Haptoglobin 170 04/09/22 07:03: WBC 4.7, RBC 2.31 L, Hgb 6.4 L, Hct 20.1 L, MCV 87.0, MCH 27.7, MCHC 31.8 L, RDW Std Deviation 70.5 H, RDW Coeff of Kendall 22.1 H, Plt Count 185, MPV 10.4, Immature Gran % (Auto) 0.400, Neut % (Auto) 62.6, Lymph % (Auto) 32.1, [place] % (Auto) 4.3, Eos % (Auto) 0.4, Baso % (Auto) 0.2, Absolute Neuts (auto) 2.9, Absolute Lymphs (auto) 1.50, Nucleated RBC % 0.9, Differential Comment SCANNED, Anisocytosis 1+ 04/09/22 07:03: Sodium 135 L, Potassium 3.2 L, Chloride 102, Carbon Dioxide 27.0, Anion Gap 6, BUN 12, Creatinine 0.53 L, Estim Creat Clear Calc 201.01, Est GFR (MDRD) Af Amer 217, Est GFR (MDRD) Non-Af 179, BUN/Creatinine Ratio 22.7 H, Glucose 97, Calcium 8.4 L, Total Bilirubin 1.00, AST 191 H, ALT 22, Alkaline Phosphatase 81, Total Protein 6.3 L, Albumin 2.6 L, Globulin 3.7, Albumin/Globulin Ratio 0.7 L Physical Exam Narrative General: Alert, Oriented x3, Cooperative, No apparent distress HEENT: Atraumatic, PERRLA, EOMI, Normocephalic Oral: Moist Mucosa Neck: Supple, No JVD Lungs: Clear to auscultation, Normal air movement, No rhonchi, No wheeze, No rales Cardiovascular: Regular rate, Regular Rhythm, Normal S1, Normal S2, No murmurs Abdomen: Soft, Non Tender, Non-Distended, No Hepato-splenomegaly Extremities: No edema, Capillary Refill Less than 3 Seconds Skin: No rashes, No breakdown Musculoskeletal: No Tenderness to Palpation of Joints or Extremities Neurological: Cranial nerves II-XII grossly intact, Motor Exam 5/5 strength throughout, Sensory exam intact to light touch and pain Psych/Mental Status: Flat affect, Appropriate Assessment & Plan Assessment/Plan (1) Anemia: PLAN: Normocytic anemia likely secondary to folate deficiency in the setting of alcohol and use of Keppra. Hemoglobin was 7.6 and dropped down to 6.4. he may need endoscopy sooner than later to look for signs of acute GI blood loss secondary to alcoholic gastritis, portal gastropathy associated with portal h ypertension from alcoholic liver disease without cirrhosis, malabsorptive disease such as celiac disease. Continue to monitor hemoglobin (2) Alcoholism: PLAN: Patient has not shown any signs of DTs at this time. He still remains on Ativan (3) Alcoholic hepatitis: PLAN: his LFTs are improving. His Madrey score for alcoholic hepatitis is 23 and today is 8 as his bilirubin has improved. Recommend continue alcohol cessation and repletion of folic acid well with B12. Avoid hepatotoxic agents. Charges/Coding Visit Charges Inpatient E&M: 22050 Subs Hosp L2
[2022-04-09] MEDS: Ensure Plus High Protein 120 ML LIQUID PO ×2 (18:36→21:11)
[2022-04-09] MEDS: LORazepam 1 MG Tablet 2 MG PO (22:58)
[2022-04-10] VITALS (11 sets, daily range): BP systolic 101–141; BP diastolic 65–101; PULSE 62–97; RESP 15–18; TEMP 35.8–37; O2SAT 95–100
[2022-04-10] MEDS: LORazepam 2 MG/ML Syringe IV ×3 (04:42→21:57)
[2022-04-10] MEDS: 0.9% Saline Lock 10 ML Syringe IV ×2 (04:45→21:58)
[2022-04-10] MEDS: Phenobarbital 32.4 MG Tablet PO ×4 (04:49→20:44)
[2022-04-10 07:11] LABS: Absolute Lymphocyte Count 1.78 X10^3/uL (0.83-4.51); Absolute Neutrophil Count 2.4 X10^3/uL (2.0-7.7); Basophil# 0.02 X10^3/uL; Basophil% 0.4 % (0-1); Eosinophil# 0.06 X10^3/uL; Eosinophils% 1.3 % (0-5); Hematocrit 28.8 % (40-54); Hemoglobin 9.5 g/dL (13.0-16.5); Lymphocyte # 1.78 X10^3/ul (0.83-4.51); Lymphocyte % 39.6 % (19-41); Mean Corpuscular Hgb 28.5 pg (27.0-32.0); Mean Corpuscular Volume 86.5 fL (80-94); Mean Platelet Vol. 10.3 fl (6.2-12.0); Monocyte# 0.24 X10^3/uL; Monocyte% 5.3 % (0-10); NRBC Flagged by Analyzer 0 % (0-5); Neutrophil # 2.37 X10^3/uL (2.7-7.7); Platelet Count 178 K/mm3 (150-450); RBC Distribution Width CV 18.6 % (11.6-14.6); RBC Distribution Width SD 58.4 fl (35.1-43.9); Red Blood Count 3.33 M/mm3 (4.6-6.2); White Blood Count 4.5 K/mm3 (4.4-11.0)
[2022-04-10 07:40] LABS: ALB/GLOB Ratio 0.7 RATIO (0.9-2.4); AST(SGOT) 159 U/L (15-37); Alanine Aminotransfer ALT/SGPT 17 U/L (16-61); Albumin, Serum 2.7 g/dL (3.2-5.0); Alkaline Phosphatase 88 U/L (45-117); Anion Gap 8 (5-15); BUN 11 mg/dL (7-18); BUN/Creat Ratio 20.8 RATIO (10-20); Calcium,Total 8.6 mg/dL (8.5-10.1); Chloride 106 mmol/L (98-107); Creatinine, Serum 0.53 mg/dL (0.70-1.30); EST Glomerular Filtration Rate 179 mL/min (>60); Est Glom Filt Rate - Afr Amer 217 mL/min (>60); Estimated Creatinine Clearance 201.01 ml/min; Globulin 3.8 g/dL (2.2-4.2); Glucose 88 mg/dL (74-106); Potassium 3.5 mmol/L (3.5-5.1); Protein, Total 6.5 g/dL (6.4-8.2); Sodium Level 138 mmol/L (136-145)
[2022-04-10] MEDS: levETIRAcetam 500 MG Tablet PO ×2 (09:09→20:44)
[2022-04-10] MEDS: Thiamine Hydrochloride 100 MG Tablet PO (09:09)
[2022-04-10] MEDS: Ensure Plus High Protein 120 ML LIQUID PO (09:11)
--- NOTE | 2022-04-10 10:10 | PCM.PN.HOSP ---
Subjective Subjective Doing well, no issues overnight. Objective Data Objective Data Vital Signs: Vital Signs Temp Pulse Resp BP Pulse Ox O2 Del Method 98.6 F 76 16 125/76 H 95 Room Air 04/10/22 05:54 04/10/22 05:54 04/10/22 05:54 04/10/22 05:54 04/10/22 08:18 04/10/22 08:18 Oxygen Delivery Method Room Air Weight: 194 lb 3.636 oz Body Mass Index (BMI) 25.6 Intake & Output: Intake and Output for Last 24 Hours 04/09/22 04/10/22 04/11/22 03:59 03:59 03:59 Intake Total 550 / 550 1050.2 / 1050.2 Balance 550 / 550 1050.2 / 1050.2 Lab / Micro Data Result Diagrams: 04/10/22 06:59 04/10/22 06:59 Labs: Laboratory Results - last 24 hr 04/07/22 20:49: Crossmatch See Detail 04/10/22 06:59: WBC 4.5, RBC 3.33 L, Hgb 9.5 L, Hct 28.8 L, MCV 86.5, MCH 28.5, MCHC 33.0, RDW Std Deviation 58.4 H, RDW Coeff of Kendall 18.6 H, Plt Count 178, MPV 10.3, Immature Gran % (Auto) 0.400, Neut % (Auto) 53.0, Lymph % (Auto) 39.6, [place] % (Auto) 5.3, Eos % (Auto) 1.3, Baso % (Auto) 0.4, Absolute Neuts (auto) 2.4, Absolute Lymphs (auto) 1.78, Nucleated RBC % 0 04/10/22 06:59: Sodium 138, Potassium 3.5, Chloride 106, Carbon Dioxide 24.0, Anion Gap 8, BUN 11, Creatinine 0.53 L, Estim Creat Clear Calc 201.01, Est GFR (MDRD) Af Amer 217, Est GFR (MDRD) Non-Af 179, BUN/Creatinine Ratio 20.8 H, Glucose 88, Calcium 8.6, Total Bilirubin 1.80 H, AST 159 H, ALT 17, Alkaline Phosphatase 88, Total Protein 6.5, Albumin 2.7 L, Globulin 3.8, Albumin/Globulin Ratio 0.7 L Physical Exam Narrative General: Alert, Oriented x3, Cooperative, No apparent distress HEENT: Atraumatic, PERRLA, EOMI, Normocephalic Oral: Moist Mucosa Neck: Supple, No JVD Lungs: Clear to auscultation, Normal air movement, No rhonchi, No wheeze, No rales Cardiovascular: Regular rate, Regular Rhythm, Normal S1, Normal S2, No murmurs Abdomen: Soft, Non Tender, Non-Distended, No Hepato-splenomegaly Extremities: No edema, Capllary Refill Less than 3 Seconds Skin: No rashes, No breakdown Musculoskeletal: No Tenderness to Palpation of Joints or Extremities Neurological: Cranial nerves II-XII grossly intact, Motor Exam 5/5 strength throughout, Sensory exam intact to light touch and pain Psych/Mental Status: Flat affect, Appropriates Assessment & Plan Assessment/Plan (1) Anemia: (2) Alcoholism: PLAN: Plan 1. Anemia possibly due to his low folate secondary to history of alcoholism/elevated LFTs with hyperbilirubinemia ? His folic acid is low so we will replace with IV folate as well as p.o. vitamin B12, transfuse 2 units yesterday, hemoglobin is 9.5 today ? We will check H&H in the afternoon ? We will consult gastroenterology for assistance with his liver disease, Hemoccult at the outside hospital was negative will repeat here ? Continue with the CIWA protocol and Ativan as necessary 2. History of seizures ? Continue with Keppra ? Stable 3. Tobacco abuse ?Counseled ?Declined nicotine patch. DVT: SCDs Charges/Coding Visit Charges Inpatient E&M: 59157 Subs Hosp L2
[2022-04-10 14:12] LABS: Hematocrit 29.9 % (40-54); Hemoglobin 9.8 g/dL (13.0-16.5)
--- NOTE | 2022-04-10 17:16 | PCM.PROGNOTE ---
Subjective Subjective He is still drowsy.? He denies any abdominal pain Objective Data Objective Data Vital Signs: Vital Signs Temp Pulse Resp BP Pulse Ox O2 Del Method 97 F L 79 15 129/92 H 100 Room Air 04/10/22 14:55 04/10/22 14:55 04/10/22 14:55 04/10/22 14:55 04/10/22 14:55 04/10/22 14:55 Oxygen Delivery Method Room Air Weight: 194 lb 3.636 oz Body Mass Index (BMI) 25.6 Intake & Output: Intake and Output for Last 24 Hours 04/08/22 04/09/22 04/10/22 23:59 23:59 23:59 Intake Total 950 / 950 650.2 / 650.2 500.2 / 500.2 Balance 950 / 950 650.2 / 650.2 500.2 / 500.2 Lab / Micro Data Result Diagrams: 04/10/22 13:57 04/10/22 06:59 Labs: Laboratory Results - last 24 hr 04/07/22 20:49: Crossmatch See Detail 04/10/22 06:59: WBC 4.5, RBC 3.33 L, Hgb 9.5 L, Hct 28.8 L, MCV 86.5, MCH 28.5, MCHC 33.0, RDW Std Deviation 58.4 H, RDW Coeff of Kendall 18.6 H, Plt Count 178, MPV 10.3, Immature Gran % (Auto) 0.400, Neut % (Auto) 53.0, Lymph % (Auto) 39.6, [place] % (Auto) 5.3, Eos % (Auto) 1.3, Baso % (Auto) 0.4, Absolute Neuts (auto) 2.4, Absolute Lymphs (auto) 1.78, Nucleated RBC % 0 04/10/22 06:59: Sodium 138, Potassium 3.5, Chloride 106, Carbon Dioxide 24.0, Anion Gap 8, BUN 11, Creatinine 0.53 L, Estim Creat Clear Calc 201.01, Est GFR (MDRD) Af Amer 217, Est GFR (MDRD) Non-Af 179, BUN/Creatinine Ratio 20.8 H, Glucose 88, Calcium 8.6, Total Bilirubin 1.80 H, AST 159 H, ALT 17, Alkaline Phosphatase 88, Total Protein 6.5, Albumin 2.7 L, Globulin 3.8, Albumin/Globulin Ratio 0.7 L 04/10/22 13:57: Hgb 9.8 L, Hct 29.9 L Physical Exam Narrative General: Alert, Oriented x3, Cooperative, No apparent distress HEENT: Atraumatic, PERRLA, EOMI, Normocephalic Oral: Moist Mucosa Neck: Supple, No JVD Lungs: Clear to auscultation, Normal air movement, No rhonchi, No wheeze, No rales Cardiovascular: Regular rate, Regular Rhythm, Normal S1, Normal S2, No murmurs Abdomen: Soft, Non Tender, Non-Distended, No Hepato-splenomegaly Extremities: No edema, Capllary Refill Less than 3 Seconds Skin: No rashes, No breakdown Musculoskeletal: No Tenderness to Palpation of Joints or Extremities Neurological: Cranial nerves II-XII grossly intact, Motor Exam 5/5 strength throughout, Sensory exam intact to light touch and pain Psych/Mental Status: Flat affect, Appropriates Assessment & Plan Assessment/Plan (1) Alcoholic hepatitis: (2) Alcoholism: PLAN: Patient has not shown any signs of DTs at this time.? He still remains on Ativan. (3) Anemia: PLAN: Normocytic anemia likely secondary to folate deficiency in the setting of alcohol and use of Keppra.? Hemoglobin was 7.6 and dropped down to 6.4.? he may need endoscopy sooner than later to look for signs of acute GI blood loss secondary to alcoholic gastritis, portal gastropathy associated with portal hypertension from alcoholic liver disease without cirrhosis, malabsorptive disease such as celiac disease.? Continue to monitor hemoglobin. If it drops, then he will need an upper endoscopy. PLAN: Plan ? his LFTs are improving.? His Madrey score for alcoholic hepatitis is 23 and today is 8 as his bilirubin has improved.? Recommend continue alcohol cessation and repletion of folic acid well with B12.? Avoid hepatotoxic agents. Charges/Coding Visit Charges Inpatient E&M: 21438 Subs Hosp L2
--- NOTE | 2022-04-10 19:17 | NURSING ---
pt noted lying in bed with HOB elevated, pt is A&O to self and time, pt denies pain at this time, no injuries noted, ROM complete without difficulty. pt is excessively mumbling and hallucinating at this time. Pt noted to becomes easily agitated at this time. bed alarm ammunition supervisor light within reach. tele placed on pt will monitor.
--- NOTE | 2022-04-10 19:42 | CT_ITS ---
STUDY: CT BRAIN WITHOUT CONTRAST REASON FOR EXAM: Male, 46 years old. Fall RADIATION DOSAGE (If Supplied By Facility): CTDIvol = ( 44.99 ) mGy, DLP = ( 846.73 ) mGycm TECHNIQUE: Transaxial CT imaging of the brain was performed without administration of intravenous contrast material. Individualized dose optimization techniques were used for this CT. COMPARISON: 08/14/2020 FINDINGS: Normal soft tissue structures. Normal calvarium. Normal size ventricles and extra-axial spaces for the patient''s age. Normal white matter tracts of the cerebral hemispheres. Normal basal ganglia and thalami. Normal brainstem. Normal cerebellum. There is no intracranial hemorrhage. There are no findings of an acute ischemic infarction. Normal visualized paranasal sinuses. CT/Brain/Head without Contrast IMPRESSION: No acute abnormal intracranial finding. Electronically Signed: Steve Castle MD at 20:30 EST ,
[2022-04-10] MEDS: traZODone 100 MG Tablet PO (20:44)
[2022-04-11] VITALS (7 sets, daily range): BP systolic 126–142; BP diastolic 96–106; PULSE 63–68; RESP 16–20; TEMP 36.2–36.9; O2SAT 98–100
[2022-04-11] MEDS: LORazepam 2 MG/ML Syringe IV (01:20)
[2022-04-11] MEDS: 0.9% Saline Lock 10 ML Syringe IV (01:20)
[2022-04-11] MEDS: Phenobarbital 32.4 MG Tablet PO ×4 (01:59→19:59)
--- NOTE | 2022-04-11 02:56 | NURSING ---
pt is refusing to wear telemetry, Dr Luque updated, telemetry discontinued.
[2022-04-11 05:58] LABS: Absolute Lymphocyte Count 1.77 X10^3/uL (0.83-4.51); Absolute Neutrophil Count 3.2 X10^3/uL (2.0-7.7); Basophil# 0.03 X10^3/uL; Basophil% 0.5 % (0-1); Eosinophil# 0.09 X10^3/uL; Eosinophils% 1.6 % (0-5); Hematocrit 29.6 % (40-54); Hemoglobin 10.1 g/dL (13.0-16.5); Lymphocyte # 1.77 X10^3/ul (0.83-4.51); Lymphocyte % 32.4 % (19-41); Mean Corp Hgb Conc 34.1 g/dL (32-36); Mean Corpuscular Hgb 29.8 pg (27.0-32.0); Mean Corpuscular Volume 87.3 fL (80-94); Mean Platelet Vol. 10.9 fl (6.2-12.0); Monocyte# 0.39 X10^3/uL; Monocyte% 7.1 % (0-10); NRBC Flagged by Analyzer 0 % (0-5); Neutrophil # 3.15 X10^3/uL (2.7-7.7); Neutrophil % 57.9 % (47-70); Platelet Count 214 K/mm3 (150-450); RBC Distribution Width CV 18.8 % (11.6-14.6); RBC Distribution Width SD 59.5 fl (35.1-43.9); Red Blood Count 3.39 M/mm3 (4.6-6.2); White Blood Count 5.5 K/mm3 (4.4-11.0)
[2022-04-11 06:23] LABS: ALB/GLOB Ratio 0.7 RATIO (0.9-2.4); AST(SGOT) 141 U/L (15-37); Alanine Aminotransfer ALT/SGPT 21 U/L (16-61); Albumin, Serum 2.7 g/dL (3.2-5.0); Alkaline Phosphatase 90 U/L (45-117); Anion Gap 6 (5-15); BUN 7 mg/dL (7-18); BUN/Creat Ratio 13.9 RATIO (10-20); Calcium,Total 8.6 mg/dL (8.5-10.1); Chloride 104 mmol/L (98-107); EST Glomerular Filtration Rate 191 mL/min (>60); Est Glom Filt Rate - Afr Amer 231 mL/min (>60); Globulin 3.9 g/dL (2.2-4.2); Glucose 75 mg/dL (74-106); Potassium 3.4 mmol/L (3.5-5.1); Protein, Total 6.6 g/dL (6.4-8.2); Sodium Level 136 mmol/L (136-145)
[2022-04-11] MEDS: Potassium Chloride Oral Tablet 20 MEQ 60 MEQ PO (08:18)
[2022-04-11] MEDS: Cyanocobalamin 500 MCG Tablet 1000 MCG PO (08:19)
[2022-04-11] MEDS: levETIRAcetam 500 MG Tablet PO ×2 (08:20→19:59)
[2022-04-11] MEDS: Thiamine Hydrochloride 100 MG Tablet PO (08:20)
[2022-04-11] MEDS: Ensure Plus High Protein 120 ML LIQUID PO (08:20)
--- NOTE | 2022-04-11 10:30 | PN.HOSP_ITS ---
Subjective Subjective Was found on the floor last night CT scan of his brain is negative. Seems more confused today and out of it ammonia is only 44 but elevated. Objective Data Objective Data Vital Signs: Vital Signs Temp Pulse Resp BP Pulse Ox O2 Del Method 97.4 F L 64 18 126/96 H 98 Room Air 04/11/22 06:07 04/11/22 06:07 04/11/22 06:07 04/11/22 06:07 04/11/22 09:08 04/11/22 09:08 Oxygen Delivery Method Room Air Weight: 194 lb 3.636 oz Body Mass Index (BMI) 25.6 Intake & Output: Intake and Output for Last 24 Hours 04/10/22 04/11/22 04/12/22 03:59 03:59 03:59 Intake Total 1050.2 / 1050.2 160.2 / 160.2 Balance 1050.2 / 1050.2 160.2 / 160.2 Lab / Micro Data Result Diagrams: 04/11/22 05:21 04/11/22 05:21 Labs: Laboratory Results - last 24 hr 04/10/22 13:57: Hgb 9.8 L, Hct 29.9 L 04/11/22 05:21: WBC 5.5, RBC 3.39 L, Hgb 10.1 L, Hct 29.6 L, MCV 87.3, MCH 29.8, MCHC 34.1, RDW Std Deviation 59.5 H, RDW Coeff of Kendall 18.8 H, Plt Count 214, MPV 10.9, Immature Gran % (Auto) 0.500, Neut % (Auto) 57.9, Lymph % (Auto) 32.4, [place] % (Auto) 7.1, Eos % (Auto) 1.6, Baso % (Auto) 0.5, Absolute Neuts (auto) 3.2, Absolute Lymphs (auto) 1.77, Nucleated RBC % 0 04/11/22 05:21: Sodium 136, Potassium 3.4 L, Chloride 104, Carbon Dioxide 26.0, Anion Gap 6, BUN 7, Creatinine 0.50 L, Estim Creat Clear Calc 213.07, Est GFR (MDRD) Af Amer 231, Est GFR (MDRD) Non-Af 191, BUN/Creatinine Ratio 13.9, Glucose 75, Calcium 8.6, Total Bilirubin 1.20 H, AST 141 H, ALT 21, Alkaline Phosphatase 90, Total Protein 6.6, Albumin 2.7 L, Globulin 3.9, Albumin/Globulin Ratio 0.7 L 04/11/22 09:46: Ammonia 44.0 H Radiography Diagnostic Testing: Radiology Impression Brain CT 04/10/22 19:42 IMPRESSION: No acute abnormal intracranial finding. Electronically Signed: Steve Castle MD at 20:30 EST , Physical Exam Narrative General: Alert, confused, Cooperative, No apparent distress HEENT: Atraumatic, PERRLA, EOMI, Normocephalic Oral: Moist Mucosa Neck: Supple, No JVD Lungs: Clear to auscultation, Normal air movement, No rhonchi, No wheeze, No ral es Cardiovascular: Regular rate, Regular Rhythm, Normal S1, Normal S2, No murmurs Abdomen: Soft, Non Tender, Non-Distended, No Hepato-splenomegaly Extremities: No edema, Capllary Refill Less than 3 Seconds Skin: No rashes, No breakdown Musculoskeletal: No Tenderness to Palpation of Joints or Extremities Neurological: Cranial nerves II-XII grossly intact, Motor Exam 5/5 strength throughout, Sensory exam intact to light touch and pain Psych/Mental Status: Flat affect, Appropriates Assessment & Plan Assessment/Plan (1) Anemia: (2) Alcoholism: PLAN: Plan 1. Anemia possibly due to his low folate secondary to history of alcoholism/elevated LFTs with hyperbilirubinemia with hepatic encephalopathy ? His folic acid is low so we will replace with IV folate as well as p.o. vitamin B12, transfuse 2 units yesterday, hemoglobin is 9.5 today ? We will check H&H in the afternoon ? We will consult gastroenterology for assistance with his liver disease ? Continue with the CIWA protocol and Ativan as necessary ? Ammonia is 44 on admission was 63 he seems more confused today hemoglobin is stable we will start him on lactulose continue with his IV folate 2. History of seizures ? Continue with Keppra ? Stable 3. Tobacco abuse ?Counseled ?Declined nicotine patch. DVT: SCDs Charges/Coding Visit Charges Inpatient E&M: 57666 Subs Hosp L2
[2022-04-11] MEDS: Lactulose 20 GM/30 ML UDC 10 GM PO ×2 (11:34→19:59)
[2022-04-11] MEDS: Gabapentin 300 MG Capsule PO (19:59)
[2022-04-12 05:41] VITALS: BP 127/89; PULSE 69; RESP 18; TEMP 36.2; O2SAT 99
[2022-04-12 06:21] LABS: Absolute Lymphocyte Count 1.95 X10^3/uL (0.83-4.51); Absolute Neutrophil Count 3.9 X10^3/uL (2.0-7.7); Basophil# 0.04 X10^3/uL; Basophil% 0.6 % (0-1); Eosinophil# 0.11 X10^3/uL; Eosinophils% 1.6 % (0-5); Hematocrit 28.9 % (40-54); Hemoglobin 9.7 g/dL (13.0-16.5); Lymphocyte # 1.95 X10^3/ul (0.83-4.51); Mean Corp Hgb Conc 33.6 g/dL (32-36); Mean Corpuscular Hgb 29.6 pg (27.0-32.0); Mean Corpuscular Volume 88.1 fL (80-94); Mean Platelet Vol. 10.1 fl (6.2-12.0); Monocyte# 0.62 X10^3/uL; Monocyte% 9.2 % (0-10); NRBC Flagged by Analyzer 0 % (0-5); Neutrophil # 3.93 X10^3/uL (2.7-7.7); Neutrophil % 58.6 % (47-70); Platelet Count 220 K/mm3 (150-450); RBC Distribution Width CV 18.7 % (11.6-14.6); RBC Distribution Width SD 59.9 fl (35.1-43.9); Red Blood Count 3.28 M/mm3 (4.6-6.2); White Blood Count 6.7 K/mm3 (4.4-11.0)
[2022-04-12 07:11] LABS: ALB/GLOB Ratio 0.7 RATIO (0.9-2.4); AST(SGOT) 107 U/L (15-37); Alanine Aminotransfer ALT/SGPT 18 U/L (16-61); Albumin, Serum 2.8 g/dL (3.2-5.0); Alkaline Phosphatase 92 U/L (45-117); Anion Gap 6 (5-15); BUN 5 mg/dL (7-18); BUN/Creat Ratio 9.5 RATIO (10-20); Calcium,Total 8.8 mg/dL (8.5-10.1); Chloride 106 mmol/L (98-107); Creatinine, Serum 0.52 mg/dL (0.70-1.30); EST Glomerular Filtration Rate 181 mL/min (>60); Est Glom Filt Rate - Afr Amer 219 mL/min (>60); Estimated Creatinine Clearance 204.87 ml/min; Globulin 4.1 g/dL (2.2-4.2); Glucose 82 mg/dL (74-106); Potassium 3.7 mmol/L (3.5-5.1); Protein, Total 6.9 g/dL (6.4-8.2); Sodium Level 135 mmol/L (136-145)
[2022-04-12 08:06] VITALS: BP 114/90; PULSE 69; RESP 16; TEMP 36.7; O2SAT 96
[2022-04-12] MEDS: Lactulose 20 GM/30 ML UDC 10 GM PO (08:11)
[2022-04-12] MEDS: Phenobarbital 32.4 MG Tablet PO (08:12)
[2022-04-12] MEDS: Thiamine Hydrochloride 100 MG Tablet PO (08:12)
[2022-04-12] MEDS: Cyanocobalamin 500 MCG Tablet 1000 MCG PO (08:12)
[2022-04-12] MEDS: levETIRAcetam 500 MG Tablet PO ×2 (08:12→19:35)
--- NOTE | 2022-04-12 09:26 | PCM.PN.HOSP ---
Subjective Subjective Still confused encephalopathic unlikely to be due to withdrawal and medications Objective Data Objective Data Vital Signs: Vital Signs Temp Pulse Resp BP Pulse Ox O2 Del Method 98.0 F 69 16 114/90 H 96 Room Air 04/12/22 08:06 04/12/22 08:06 04/12/22 08:06 04/12/22 08:06 04/12/22 08:06 04/12/22 08:06 Oxygen Delivery Method Room Air Weight: 194 lb 3.636 oz Body Mass Index (BMI) 25.6 Intake & Output: Intake and Output for Last 24 Hours 04/11/22 04/12/22 04/13/22 03:59 03:59 03:59 Intake Total 160.2 / 160.2 585.2 / 585.2 60 60 Balance 160.2 / 160.2 585.2 / 585.2 Lab / Micro Data Result Diagrams: 04/12/22 05:20 04/12/22 05:20 Labs: Laboratory Results - last 24 hr 04/11/22 09:46: Ammonia 44.0 H 04/12/22 05:20: WBC 6.7, RBC 3.28 L, Hgb 9.7 L, Hct 28.9 L, MCV 88.1, MCH 29.6, MCHC 33.6, RDW Std Deviation 59.9 H, RDW Coeff of Kendall 18.7 H, Plt Count 220, MPV 10.1, Immature Gran % (Auto) 1.000 H, Neut % (Auto) 58.6, Lymph % (Auto) 29.0, [place] % (Auto) 9.2, Eos % (Auto) 1.6, Baso % (Auto) 0.6, Absolute Neuts (auto) 3.9, Absolute Lymphs (auto) 1.95, Nucleated RBC % 0 04/12/22 05:20: Sodium 135 L, Potassium 3.7, Chloride 106, Carbon Dioxide 23.0, Anion Gap 6, BUN 5 L, Creatinine 0.52 L, Estim Creat Clear Calc 204.87, Est GFR (MDRD) Af Amer 219, Est GFR (MDRD) Non-Af 181, BUN/Creatinine Ratio 9.5 L, Glucose 82, Calcium 8.8, Total Bilirubin 1.00, AST 107 H, ALT 18, Alkaline Phosphatase 92, Total Protein 6.9, Albumin 2.8 L, Globulin 4.1, Albumin/Globulin Ratio 0.7 L Physical Exam Narrative General: Alert, confused, Cooperative, No apparent distress HEENT: Atraumatic, PERRLA, EOMI, Normocephalic Oral: Moist Mucosa Neck: Supple, No JVD Lungs: Clear to auscultation, Normal air movement, No rhonchi, No wheeze, No rales Cardiovascular: Regular rate, Regular Rhythm, Normal S1, Normal S2, No murmurs Abdomen: Soft, Non Tender, Non-Distended, No Hepato-splenomegaly Extremities: No edema, Capillary Refill Less than 3 Seconds Skin: No rashes, No breakdown Musculoskeletal: No Tenderness to Palpation of Joints or Extremities Neurological: Cranial nerves II-XII grossly intact, Motor Exam 5/5 strength throughout, Sensory exam intact to light touch and pain Psych/Mental Status: Flat affect, Appropriate, per nursing has had some hallucinations Assessment & Plan Assessment/Plan (1) Anemia: (2) Alcoholism: PLAN: Plan 1. Anemia possibly due to his low folate secondary to history of alcoholism/elevated LFTs with hyperbilirubinemia with hepatic encephalopathy ? His folic acid is low so we will replace with IV folate as well as p.o. vitamin B12, transfuse 2 units yesterday, he globin is stable ? We will consult gastroenterology for assistance with his liver disease ? Continue with the CIWA protocol and Ativan as necessary ?Given his hepatic encephalopathy we will continue with lactulose and discussed the case with GI in the morning 2. History of seizures ? Continue with Keppra ? Stable 3. Tobacco abuse ?Counseled ?Declined nicotine patch. DVT: SCDs Charges/Coding Visit Charges Inpatient E&M: 63372 Subs Hosp L2
[2022-04-12] MEDS: Lactulose 20 GM/30 ML UDC PO ×2 (10:03→19:35)
[2022-04-12 14:20] VITALS: BP 117/90; PULSE 69; RESP 16; TEMP 36.3; O2SAT 96
[2022-04-12] MEDS: LORazepam 2 MG/ML Syringe IV ×2 (17:38→21:28)
[2022-04-12] MEDS: 0.9% Saline Lock 10 ML Syringe IV ×2 (19:26→21:28)
[2022-04-12] MEDS: Haloperidol Lactate 5 MG/ML Vial 4 MG IV (19:26)
[2022-04-12 19:31] VITALS: BP 125/81; PULSE 90; RESP 18; TEMP 36.4; O2SAT 96
[2022-04-12 21:25] VITALS: BP 122/80; PULSE 78; RESP 20; TEMP 36.8; O2SAT 99
[2022-04-13 03:27] VITALS: BP 126/90; PULSE 77; RESP 20; TEMP 36.9; O2SAT 100
[2022-04-13] MEDS: LORazepam 2 MG/ML Syringe IV (03:40)
[2022-04-13] MEDS: 0.9% Saline Lock 10 ML Syringe IV (03:41)
[2022-04-13 07:22] LABS: Absolute Lymphocyte Count 1.47 X10^3/uL (0.83-4.51); Absolute Neutrophil Count 3.3 X10^3/uL (2.0-7.7); Basophil# 0.05 X10^3/uL; Basophil% 0.9 % (0-1); Eosinophil# 0.09 X10^3/uL; Eosinophils% 1.6 % (0-5); Hematocrit 33.8 % (40-54); Lymphocyte # 1.47 X10^3/ul (0.83-4.51); Lymphocyte % 26.2 % (19-41); Mean Corp Hgb Conc 32.5 g/dL (32-36); Mean Corpuscular Hgb 28.5 pg (27.0-32.0); Mean Corpuscular Volume 87.6 fL (80-94); Mean Platelet Vol. 10.7 fl (6.2-12.0); Monocyte# 0.62 X10^3/uL; NRBC Flagged by Analyzer 0 % (0-5); Neutrophil # 3.32 X10^3/uL (2.7-7.7); Neutrophil % 59.1 % (47-70); Platelet Count 198 K/mm3 (150-450); RBC Distribution Width SD 59.3 fl (35.1-43.9); Red Blood Count 3.86 M/mm3 (4.6-6.2); White Blood Count 5.6 K/mm3 (4.4-11.0)
[2022-04-13 07:57] LABS: ALB/GLOB Ratio 0.7 RATIO (0.9-2.4); AST(SGOT) 103 U/L (15-37); Alanine Aminotransfer ALT/SGPT 20 U/L (16-61); Albumin, Serum 3.1 g/dL (3.2-5.0); Alkaline Phosphatase 107 U/L (45-117); Anion Gap 10 (5-15); BUN 5 mg/dL (7-18); BUN/Creat Ratio 8.2 RATIO (10-20); Calcium,Total 9.2 mg/dL (8.5-10.1); Chloride 105 mmol/L (98-107); Creatinine, Serum 0.61 mg/dL (0.70-1.30); EST Glomerular Filtration Rate 153 mL/min (>60); Est Glom Filt Rate - Afr Amer 185 mL/min (>60); Estimated Creatinine Clearance 174.64 ml/min; Globulin 4.7 g/dL (2.2-4.2); Glucose 86 mg/dL (74-106); Potassium 3.7 mmol/L (3.5-5.1); Protein, Total 7.8 g/dL (6.4-8.2); Sodium Level 135 mmol/L (136-145)
[2022-04-13 09:25] VITALS: BP 118/74; PULSE 82; RESP 18; TEMP 36.4; O2SAT 100
--- NOTE | 2022-04-13 10:10 | CASEMGMT ---
RN CM: Call placed to pt's brother Karlos to complete DC Planning Assessment, identifying voicemail received and message left requesting a return call. Shasta Upton RN CM
[2022-04-13] MEDS: Cyanocobalamin 500 MCG Tablet 1000 MCG PO (10:54)
[2022-04-13] MEDS: levETIRAcetam 500 MG Tablet PO ×2 (10:54→21:53)
[2022-04-13] MEDS: Thiamine Hydrochloride 100 MG Tablet PO (10:55)
--- NOTE | 2022-04-13 13:00 | CASEMGMT ---
RN MASOOD Discharge Planning Assessment: Noted pt to remain confused. SILVIA CORREIA to pt's room and noted pt to be sleeping. Face to Face with patient for initial transition planning/care coordination assessment deferred. Pt's brother Karlos returned this RN MASOOD's call. Introduced self and role at [facility], pt's brother voiced understanding. Care providers and demographics verified. Pt's brother also requested this ad copy writer contact their sister Sharri. Call placed to Sharri and voicemail left. Sharri return the call and also provided details as noted in the assessment findings. Sharri placed pt's step-mother Janet Cabezas on speaker phone and she also provided information as pt had been communicating with her regularly over the past month. PCP: None. Sharri states she has attempted to encourage pt to get established with PCP but pt declined. Specialists: None. Sharri states pt relayed he has a tumor in his brain but pt would not follow-up or allow family to set-up appointments for a second opinion. Insurance: [employer] as noted on facesheet. Family is not aware of pt's insurance status. Prescription Benefit: As above. Living Will/HPOA: None LNOK: Sister Sharri Navarrete and Brother Karlos Cohen. Pt's father is as of August,; pt's mother's whereabouts are unknown (x20 years). Living Arrangements: Pt lives in a house trailer with 2 steps to enter. Pt lives with a friend Gilberto Logan for the past approximately 2 years. Gilberto rents the trailer. ADLs: Pt had been independent with ADLs but in the past month was reporting to his step-mother Janet Cabezas that he was having increased pain and increased difficulty in walking around. He reported he was unable to walk by himself and was afraid to leave the trailer. Transportation: Pt does not own a car and does not drive due to seizures. Pt's friends and family transport him as needed. DME/HHC: None. No previous known SNF/RU/HHC. SDOH: Financial: Pt's brother Karlos states pt has not been working at [employer]. Pt's sister Sharri states pt does not have any income. Pt reported to have filed for disability through the [facility] but was denied and his case was closed. Unknown if pt has applied for Medicaid in the past. Substance Abuse: Pt's brother Karlos states pt drank approximately a 1/5th of whiskey daily. 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 Pt has not sought help nor has he been open to MH assistance in the past. Pt confided in his dad who was a [place] prior to his dad's passing. Pt's step-mother stated pt was always jovial with her but over the past month he had become very subdued. Food insecurity: Unknown Housing: As above Plan: Pt's sister and brother are both willing to assist with discharge planning arrangements and to help as needed. Pt's sister Sharri noted they are willing do to what they need to do to help make decisions for the pt if he remains unable. Pt's brother Karlos is not able to take pt at discharge (if appropriate) due to living in a small apartment with his son. Pt's sister states that if pt becomes alert and oriented he may want to leave and sign out AMA as that is just how he is. Explained concerns for weakness prior to admission and his continued stay at the hospital. Discussed possible SNF need with both. Will continue to monitor progression of pt's mental status and determine discharge plan. Shasta Upton RN CM
--- NOTE | 2022-04-13 13:44 | PN.HOSP_ITS ---
Subjective Subjective Patient seen and examined. He does remain quite confused. He could however answer questions and had no active complaints. His CIWA score remains elevated at 9 today. He has completed the phenobarb taper already. Review of systems is otherwise negative. Objective Data Objective Data Vital Signs: Vital Signs Temp Pulse Resp BP Pulse Ox O2 Del Method 97.6 F L 82 18 118/74 100 Room Air 04/13/22 09:25 04/13/22 09:25 04/13/22 09:25 04/13/22 09:25 04/13/22 09:25 04/13/22 10:00 Oxygen Delivery Method Room Air Weight: 194 lb 3.636 oz Body Mass Index (BMI) 25.6 Intake & Output: Intake and Output for Last 24 Hours 04/11/22 04/12/22 04/13/22 23:59 23:59 23:59 Intake Total 645.2 / 645.2 480.2 / 480.2 120 / 120 Balance 645.2 / 645.2 480.2 / 480.2 120 / 120 Lab / Micro Data Result Diagrams: 04/13/22 07:10 04/13/22 07:10 Labs: Laboratory Results - last 24 hr 04/13/22 07:10: WBC 5.6, RBC 3.86 L, Hgb 11.0 L, Hct 33.8 L, MCV 87.6, MCH 28.5, MCHC 32.5, RDW Std Deviation 59.3 H, RDW Coeff of Kendall 19.0 H, Plt Count 198, MPV 10.7, Immature Gran % (Auto) 1.200 H, Neut % (Auto) 59.1, Lymph % (Auto) 26.2, [place] % (Auto) 11.0 H, Eos % (Auto) 1.6, Baso % (Auto) 0.9, Absolute Neuts (auto) 3.3, Absolute Lymphs (auto) 1.47, Nucleated RBC % 0 04/13/22 07:10: Sodium 135 L, Potassium 3.7, Chloride 105, Carbon Dioxide 20.0 L , Anion Gap 10, BUN 5 L, Creatinine 0.61 L, Estim Creat Clear Calc 174.64, Est GFR (MDRD) Af Amer 185, Est GFR (MDRD) Non-Af 153, BUN/Creatinine Ratio 8.2 L, Glucose 86, Calcium 9.2, Total Bilirubin 0.90, AST 103 H, ALT 20, Alkaline Phosphatase 107, Total Protein 7.8, Albumin 3.1 L, Globulin 4.7 H, Albumin/Globulin Ratio 0.7 L Physical Exam Const alert Constitutional Narrative: confused Orientation / Consciousness: confused HEENT head/scalp atraumatic, moist oral mucous membranes and oropharynx normal Head and Scalp: normocephalic Mouth: oral and palatal mucosa normal Eyes PERRL and EOMs intact bilaterally Neck no lymphadenopathy and supple Resp normal respiratory effort, no retractions, no use of accessory muscles and clear to auscultation bilaterally Cardio regular rate, regular rhythm, S1 normal heart sound, S2 normal heart sound and no murmurs GI normal to inspection, nondistended, normoactive bowel sounds, soft to palpation, non-tender and non-distended Extremity normal to inspection, full ROM and no clubbing, cyanosis or edema Neuro CN's II-XII intact bilaterally, moves all extremities and no focal motor de ficits Neuro Narrative: confused Sensorium / Orientation: awake and alert Speech: speech normal Psych Psych Narrative: confused Assessment & Plan Assessment/Plan (1) Alcoholic hepatitis: (2) Alcoholism: (3) Anemia: PLAN: Plan #Acute metabolic encephalopathy due to acute alcohol withdrawal * patient still confused and encephalopathic * completed phenobarb protocol. On ativan * CIWA score is ~ 6 * on multivites, folic acid and thiamine * check ammonia level * on lactulose also; titrate to aim towards 2-3 loose stools daily * #History of seizures: on keppra #Alcoholic hepatitis * gastroenterology on board * MDF score was 23 earlier, and trended down * avoid hepatotoxic meds * no need for prednisone * #ANemia * Hb has improved. Hb is now 11; was earlier in admission. * thought to be de to low folate and liver pathology * will monitor hb * #Nicotine dependence: on nicotine patch DVT prophylaxis; SCDs Charges/Coding Visit Charges Inpatient E&M: 54844 Subs Hosp L2
[2022-04-13 15:25] VITALS: BP 145/103; PULSE 75; RESP 18; TEMP 36.4; O2SAT 95
--- NOTE | 2022-04-13 16:57 | PN_ITS ---
Subjective Subjective Patient is still having a lot of confusion and exhibiting signs of possible Warnicke's encephalopathy. He has a very high CIWA scale Objective Data Objective Data Vital Signs: Vital Signs Temp Pulse Resp BP Pulse Ox O2 Del Method 97.6 F L 75 18 145/103 H 95 Room Air 04/13/22 15:25 04/13/22 15:25 04/13/22 15:25 04/13/22 15:25 04/13/22 15:25 04/13/22 15:25 Oxygen Delivery Method Room Air Weight: 194 lb 3.636 oz Body Mass Index (BMI) 25.6 Intake & Output: Intake and Output for Last 24 Hours 04/11/22 04/12/22 04/13/22 23:59 23:59 23:59 Intake Total 645.2 / 645.2 480.2 / 480.2 360 / 360 Balance 645.2 / 645.2 480.2 / 480.2 360 / 360 Lab / Micro Data Result Diagrams: 04/13/22 07:10 04/13/22 07:10 Labs: Laboratory Results - last 24 hr 04/13/22 07:10: WBC 5.6, RBC 3.86 L, Hgb 11.0 L, Hct 33.8 L, MCV 87.6, MCH 28.5, MCHC 32.5, RDW Std Deviation 59.3 H, RDW Coeff of Kendall 19.0 H, Plt Count 198, MPV 10.7, Immature Gran % (Auto) 1.200 H, Neut % (Auto) 59.1, Lymph % (Auto) 26.2, [place] % (Auto) 11.0 H, Eos % (Auto) 1.6, Baso % (Auto) 0.9, Absolute Neuts (auto) 3.3, Absolute Lymphs (auto) 1.47, Nucleated RBC % 0 04/13/22 07:10: Sodium 135 L, Potassium 3.7, Chloride 105, Carbon Dioxide 20.0 L , Anion Gap 10, BUN 5 L, Creatinine 0.61 L, Estim Creat Clear Calc 174.64, Est GFR (MDRD) Af Amer 185, Est GFR (MDRD) Non-Af 153, BUN/Creatinine Ratio 8.2 L, Glucose 86, Calcium 9.2, Total Bilirubin 0.90, AST 103 H, ALT 20, Alkaline Phosphatase 107, Total Protein 7.8, Albumin 3.1 L, Globulin 4.7 H, Albumin/Globulin Ratio 0.7 L Physical Exam Const alert Constitutional Narrative: confused Orientation / Consciousness: confused HEENT head/scalp atraumatic, moist oral mucous membranes and oropharynx normal Head and Scalp: normocephalic Mouth: oral and palatal mucosa normal Eyes PERRL and EOMs intact bilaterally Neck no lymphadenopathy and supple Resp normal respiratory effort, no retractions, no use of accessory muscles and clear to auscultation bilaterally Cardio regular rate, regular rhythm, S1 normal heart sound, S2 normal heart sound and no murmurs GI normal to inspection, nondistended, normoactive bowel sounds, soft to palpation, non-tender and non-distended Extremity normal to inspection, full ROM and no clubbing, cyanosis or edema Neuro CN's II-XII intact bilaterally, moves all extremities and no focal motor deficits Neuro Narrative: confused Sensorium / Orientation: awake and alert Speech: speech normal Psych Psych Narrative: confused Assessment & Plan Assessment/Plan (1) Alcoholic hepatitis: PLAN: . His liver enzymes have recovered nicely from acute alcoholic hepatitis. Continue to monitor (2) Alcoholism: PLAN: He has not shown any sign of' delirium tremens at this time. Continue high-dose B vitamins (3) Encephalopathy: PLAN: I will put him on neomycin, Flagyl, Xifaxan and he will continue lactulose therapy Charges/Coding Visit Charges Inpatient E&M: 68597 Subs Hosp L3
[2022-04-13] MEDS: metroNIDAZOLE 500 MG Tablet PO ×2 (18:42→21:52)
[2022-04-13] MEDS: Lactulose 20 GM/30 ML UDC PO ×2 (18:42→23:56)
[2022-04-13 21:50] VITALS: BP 114/72; PULSE 90; RESP 16; TEMP 36.4; O2SAT 99
[2022-04-13] MEDS: rifAXIMin 550 MG Tablet PO (21:52)
[2022-04-13] MEDS: LORazepam 1 MG Tablet 2 MG PO (23:56)
[2022-04-14] VITALS (8 sets, daily range): BP systolic 97–120; BP diastolic 65–89; PULSE 54–120; RESP 14–20; TEMP 36.3–37; O2SAT 93–100
[2022-04-14] MEDS: LORazepam 1 MG Tablet 2 MG PO (04:43)
[2022-04-14] MEDS: Haloperidol Lactate 5 MG/ML Vial 4 MG IM (05:37)
[2022-04-14] MEDS: metroNIDAZOLE 500 MG Tablet PO ×2 (05:41→14:46)
[2022-04-14] MEDS: DiphenhydrAMINE 25 MG Capsule 50 MG PO (05:41)
[2022-04-14 06:19] LABS: Absolute Lymphocyte Count 1.51 X10^3/uL (0.83-4.51); Absolute Neutrophil Count 3.6 X10^3/uL (2.0-7.7); Basophil# 0.05 X10^3/uL; Basophil% 0.9 % (0-1); Eosinophil# 0.09 X10^3/uL; Eosinophils% 1.5 % (0-5); Hematocrit 32.2 % (40-54); Hemoglobin 10.4 g/dL (13.0-16.5); Lymphocyte # 1.51 X10^3/ul (0.83-4.51); Lymphocyte % 25.7 % (19-41); Mean Corp Hgb Conc 32.3 g/dL (32-36); Mean Corpuscular Hgb 28.3 pg (27.0-32.0); Mean Corpuscular Volume 87.5 fL (80-94); Mean Platelet Vol. 10.1 fl (6.2-12.0); Monocyte# 0.58 X10^3/uL; Monocyte% 9.9 % (0-10); NRBC Flagged by Analyzer 0 % (0-5); Neutrophil # 3.58 X10^3/uL (2.7-7.7); Platelet Count 264 K/mm3 (150-450); RBC Distribution Width CV 18.8 % (11.6-14.6); RBC Distribution Width SD 60.4 fl (35.1-43.9); Red Blood Count 3.68 M/mm3 (4.6-6.2); White Blood Count 5.9 K/mm3 (4.4-11.0)
[2022-04-14 06:46] LABS: Anion Gap 10 (5-15); BUN 5 mg/dL (7-18); BUN/Creat Ratio 5.8 RATIO (10-20); Calcium,Total 9.1 mg/dL (8.5-10.1); Chloride 104 mmol/L (98-107); Creatinine, Serum 0.86 mg/dL (0.70-1.30); EST Glomerular Filtration Rate 102 mL/min (>60); Est Glom Filt Rate - Afr Amer 123 mL/min (>60); Estimated Creatinine Clearance 123.88 ml/min; Glucose 125 mg/dL (74-106); Potassium 3.4 mmol/L (3.5-5.1); Sodium Level 136 mmol/L (136-145)
[2022-04-14] MEDS: LORazepam 2 MG/ML Syringe IV ×2 (06:56→14:46)
[2022-04-14] MEDS: Haloperidol Lactate 5 MG/ML Vial 4 MG IV ×2 (08:55→19:40)
[2022-04-14] MEDS: 0.9% Saline Lock 10 ML Syringe IV ×2 (08:56→14:47)
--- NOTE | 2022-04-14 09:23 | NURSING ---
PT WAS BECOMING VERY AGITATED. HALDOL GIVEN.
[2022-04-14] MEDS: Potassium Chloride Oral Tablet 20 MEQ 40 MEQ PO (12:15)
[2022-04-14] MEDS: levETIRAcetam 500 MG Tablet PO ×2 (12:16→22:35)
[2022-04-14] MEDS: rifAXIMin 550 MG Tablet PO (12:16)
[2022-04-14] MEDS: Cyanocobalamin 500 MCG Tablet 1000 MCG PO (12:16)
[2022-04-14] MEDS: Thiamine Hydrochloride 100 MG Tablet PO (12:16)
[2022-04-14] MEDS: Lactulose 20 GM/30 ML UDC PO (12:16)
--- NOTE | 2022-04-14 12:39 | PN.HOSP_ITS ---
Subjective Subjective Patient seen and examined. He remains quite confused. He was trying to climb out of bed. Patient subsequently did fall but did not hit his head, according to his nurses. He has remained hemodynamically stable. Objective Data Objective Data Vital Signs: Vital Signs Temp Pulse Resp BP Pulse Ox O2 Del Method 98.0 F 68 14 120/89 H 100 Room Air 04/14/22 08:05 04/14/22 08:05 04/14/22 08:05 04/14/22 08:05 04/14/22 08:05 04/14/22 08:05 Oxygen Delivery Method Room Air Weight: 194 lb 3.636 oz Body Mass Index (BMI) 25.6 Intake & Output: Intake and Output for Last 24 Hours 04/12/22 04/13/22 04/14/22 23:59 23:59 23:59 Intake Total 480.2 / 480.2 360 / 360 50.2 / 50.2 Balance 480.2 / 480.2 360 / 360 50.2 / 50.2 Lab / Micro Data Result Diagrams: 04/14/22 06:13 04/14/22 06:13 Labs: Laboratory Results - last 24 hr 04/14/22 06:13: WBC 5.9, RBC 3.68 L, Hgb 10.4 L, Hct 32.2 L, MCV 87.5, MCH 28.3, MCHC 32.3, RDW Std Deviation 60.4 H, RDW Coeff of Kendall 18.8 H, Plt Count 264, MPV 10.1, Immature Gran % (Auto) 1.000 H, Neut % (Auto) 61.0, Lymph % (Auto) 25.7, [place] % (Auto) 9.9, Eos % (Auto) 1.5, Baso % (Auto) 0.9, Absolute Neuts (auto) 3.6, Absolute Lymphs (auto) 1.51, Nucleated RBC % 0 04/14/22 06:13: Sodium 136, Potassium 3.4 L, Chloride 104, Carbon Dioxide 22.0, Anion Gap 10, BUN 5 L, Creatinine 0.86, Estim Creat Clear Calc 123.88, Est GFR (MDRD) Af Amer 123, Est GFR (MDRD) Non-Af 102, BUN/Creatinine Ratio 5.8 L, Glucose 125 H, Calcium 9.1 Micro: Microbiology 04/14/22 00:40 Stool Stool Occult Blood (GEORGE) - Final Occult Blood Positive Physical Exam Const alert Constitutional Narrative: confused Orientation / Consciousness: confused HEENT head/scalp atraumatic, moist oral mucous membranes and oropharynx normal Head and Scalp: normocephalic Mouth: oral and palatal mucosa normal Eyes PERRL and EOMs intact bilaterally Neck no lymphadenopathy, supple and no JVD Resp normal respiratory effort, no retractions, no use of accessory muscles and clear to auscultation bilaterally Cardio regular rate, regular rhythm, S1 normal heart sound, S2 normal heart sound and no murmurs GI normal to inspection, nondistended, normoactive bowel sounds, soft to palpation, non-tender and non-distended Extremity normal to inspection, full ROM and no clubbing, cyanosis or edema Neuro CN's II-XII intact bilaterally, moves all extremities and no focal motor deficits Neuro Narrative: confused Sensorium / Orientation: awake and alert Speech: speech normal Motor Exam: strength 5/5 throughout Psych Psych Narrative: confused Assessment & Plan Assessment/Plan (1) Alcoholic hepatitis: (2) Alcoholism: (3) Anemia: PLAN: Plan #Acute metabolic encephalopathy due to acute alcohol withdrawal * patient still confused and encephalopathic * completed phenobarb protocol. On ativan * patient remains confused. Will get brain MRI to review for any organic pathology; brain CT showed no acute intracranial pathology * on multivites, folic acid and thiamine * check ammonia level * on lactulose also; titrate to aim towards 2-3 loose stools daily * fall precautions * #History of seizures: on keppra #Alcoholic hepatitis * gastroenterology on board * MDF score was 23 earlier, and trended down * avoid hepatotoxic meds * no need for prednisone * liver SG showed hepatomegaly and fatty infiltrate of liver * #ANemia * Hb has improved. * thought to be due to low folate and liver pathology * will monitor hb * #Nicotine dependence: on nicotine patch DVT prophylaxis; SCDs Charges/Coding Visit Charges Inpatient E&M: 78242 Subs Hosp L2
--- NOTE | 2022-04-14 13:34 | MRI_ITS ---
STUDY: MRI BRAIN WITH AND WITHOUT CONTRAST REASON FOR EXAM: Male, 46 years old. acute metabolic encephalopathy TECHNIQUE: Standardized multiplanar fat and water weighted pulse sequences were obtained. IV 17cc clariscan was administered for the contrast portion of the examination. COMPARISON: CT brain April 10, 2022 FINDINGS: There is mild cerebral atrophy with widening of the extra-axial spaces and ventricular dilatation. Normal white matter tracts of the supratentorial brain. There is no evidence for recent intracranial ischemia or other cause of cytotoxic edema on diffusion weighted imaging (DWI). Normal bilateral basal ganglia. Normal thalami. There is no extra-axial fluid accumulation. Normal flow voids within the major intracranial circulation suggesting patency by spin echo criteria. Normal venous enhancement. There is no enhancing intra-axial or extra-axial abnormality. Normal sella turcica, pituitary gland, infundibular stalk, optic chiasm and hypothalamus. Normal tectal plate and pineal gland. Normal midbrain, héctor and medulla. Normal cerebellum. Normal basal cisterns. Normal bilateral temporal bones. Normal bilateral internal auditory canals. No demonstrated orbital abnormality, within the constraints of a routine brain study. Normal visualized paranasal sinuses. Normal calvarium and skull base. Normal visualized soft tissue structures. Normal visualized upper cervical spine. MRI/Brain W/WO Contrast IMPRESSION: No acute disease Electronically Signed: William Lassiter MD at 16:27 EST ,
--- NOTE | 2022-04-14 14:30 | CASEMGMT ---
SILVIA CORREIA Follow-up: SILVIA CORREIA received a voicemail from pt's sister Sharri who requested an update on patient. Call returned and pt's sister Sharri stated she had been updated by nurse. Sharri states she has been in contact with a family member who is also an managing attorney regarding possible temporary guardianship but is awaiting a return call. Explained current next of kin guidelines regarding decision making given pt's confusion and need for competency determination for guardianship process. Discussed the likely need for a SNF at discharge due to pt's weakness and ongoing confusion. Sharri states she will discuss this evening with pt's brother Karlos as to what geographic area they would like to review facility options. Pt's brother Karlos lives in [place] and Pt's sister Sharri lives in [place]. This SILVIA CORREIA's email provided to communicate decision if after hours. Shasta Upton RN CM
--- NOTE | 2022-04-14 17:01 | PCM.PROGNOTE ---
Subjective Subjective Patient is still very confused. Objective Data Objective Data Vital Signs: Vital Signs Temp Pulse Resp BP Pulse Ox O2 Del Method 98.1 F 56 L 14 97/65 100 Room Air 04/14/22 14:41 04/14/22 15:49 04/14/22 14:41 04/14/22 14:41 04/14/22 15:49 04/14/22 15:49 Oxygen Delivery Method Room Air Weight: 194 lb 3.636 oz Body Mass Index (BMI) 25.6 Intake & Output: Intake and Output for Last 24 Hours 04/12/22 04/13/22 04/14/22 23:59 23:59 23:59 Intake Total 480.2 / 480.2 360 / 360 50.2 / 50.2 Balance 480.2 / 480.2 360 / 360 50.2 / 50.2 Lab / Micro Data Result Diagrams: 04/14/22 06:13 04/14/22 06:13 Labs: Laboratory Results - last 24 hr 04/14/22 06:13: WBC 5.9, RBC 3.68 L, Hgb 10.4 L, Hct 32.2 L, MCV 87.5, MCH 28.3, MCHC 32.3, RDW Std Deviation 60.4 H, RDW Coeff of Kendall 18.8 H, Plt Count 264, MPV 10.1, Immature Gran % (Auto) 1.000 H, Neut % (Auto) 61.0, Lymph % (Auto) 25.7, [place] % (Auto) 9.9, Eos % (Auto) 1.5, Baso % (Auto) 0.9, Absolute Neuts (auto) 3.6, Absolute Lymphs (auto) 1.51, Nucleated RBC % 0 04/14/22 06:13: Sodium 136, Potassium 3.4 L, Chloride 104, Carbon Dioxide 22.0, Anion Gap 10, BUN 5 L, Creatinine 0.86, Estim Creat Clear Calc 123.88, Est GFR (MDRD) Af Amer 123, Est GFR (MDRD) Non-Af 102, BUN/Creatinine Ratio 5.8 L, Glucose 125 H, Calcium 9.1 04/14/22 13:23: Ammonia 36.0 H Micro: Microbiology 04/14/22 00:40 Stool Stool Occult Blood (GEORGE) - Final Occult Blood Positive Radiography Diagnostic Testing: Radiology Impression Brain MRI 04/14/22 13:34 IMPRESSION: No acute disease Electronically Signed: William Lassiter MD at 16:27 EST , Physical Exam Const alert Constitutional Narrative: confused Orientation / Consciousness: confused HEENT head/scalp atraumatic, moist oral mucous membranes and oropharynx normal Head and Scalp: normocephalic Mouth: oral and palatal mucosa normal Eyes PERRL and EOMs intact bilaterally Neck no lymphadenopathy, supple and no JVD Resp normal respiratory effort, no retractions, no use of accessory muscles and clear to auscultation bilaterally Cardio regular rate, regular rhythm, S1 normal heart sound, S2 normal heart sound and no murmurs GI normal to inspection, nondistended, normoactive bowel sounds, soft to palpation, non-tender and non-distended Extremity normal to inspection, full ROM and no clubbing, cyanosis or edema Neuro CN's II-XII intact bilaterally, moves all extremities and no focal motor deficits Neuro Narrative: confused Sensorium / Orientation: awake and alert Speech: speech normal Motor Exam: strength 5/5 throughout Psych Psych Narrative: confused Assessment & Plan Assessment/Plan (1) Encephalopathy: PLAN: Prolonged encephalopathy. He was given neomycin, Flagyl and Xifaxan. He is also been on lactulose every 4-6 hours. I would consider neurology consultation as he seems to be confabulating and is still very confused despite a low level hyperammonemia. (2) Alcoholic hepatitis: PLAN: His Madrey score is only 8. LFTs have almost normalized. Recommend conservative therapy. (3) Anemia: PLAN: Hemoglobin seems to be stable. Charges/Coding Visit Charges Inpatient E&M: 66726 Subs Hosp L3
--- NOTE | 2022-04-14 22:50 | NURSING ---
Pt refusing all medications at this time except for keppra. This RN attempted to educate pt on medications, pt continues to refuse.
[2022-04-15 01:38] VITALS: BP 109/75; PULSE 92; RESP 16; TEMP 37; O2SAT 100
[2022-04-15] MEDS: Haloperidol Lactate 5 MG/ML Vial 4 MG IV (02:16)
[2022-04-15 04:51] VITALS: BP 107/79; PULSE 76; RESP 16; TEMP 36.7; O2SAT 100
[2022-04-15 05:37] LABS: Absolute Lymphocyte Count 1.37 X10^3/uL (0.83-4.51); Absolute Neutrophil Count 2.9 X10^3/uL (2.0-7.7); Basophil# 0.03 X10^3/uL; Basophil% 0.6 % (0-1); Eosinophil# 0.06 X10^3/uL; Eosinophils% 1.3 % (0-5); Hematocrit 29.7 % (40-54); Hemoglobin 9.8 g/dL (13.0-16.5); Lymphocyte # 1.37 X10^3/ul (0.83-4.51); Lymphocyte % 28.5 % (19-41); Mean Corpuscular Hgb 29.2 pg (27.0-32.0); Mean Corpuscular Volume 88.4 fL (80-94); Mean Platelet Vol. 10.3 fl (6.2-12.0); Monocyte# 0.43 X10^3/uL; NRBC Flagged by Analyzer 0 % (0-5); Neutrophil % 60.4 % (47-70); Platelet Count 212 K/mm3 (150-450); RBC Distribution Width CV 18.9 % (11.6-14.6); Red Blood Count 3.36 M/mm3 (4.6-6.2); White Blood Count 4.8 K/mm3 (4.4-11.0)
[2022-04-15 06:04] LABS: Anion Gap 7 (5-15); BUN 4 mg/dL (7-18); BUN/Creat Ratio 5.7 RATIO (10-20); Calcium,Total 8.7 mg/dL (8.5-10.1); Chloride 105 mmol/L (98-107); EST Glomerular Filtration Rate 129 mL/min (>60); Est Glom Filt Rate - Afr Amer 156 mL/min (>60); Estimated Creatinine Clearance 152.19 ml/min; Glucose 109 mg/dL (74-106); Potassium 3.3 mmol/L (3.5-5.1); Sodium Level 135 mmol/L (136-145)
[2022-04-15] MEDS: rifAXIMin 550 MG Tablet PO ×2 (08:59→21:46)
[2022-04-15] MEDS: levETIRAcetam 500 MG Tablet PO ×2 (08:59→21:46)
[2022-04-15] MEDS: Thiamine Hydrochloride 100 MG Tablet PO (08:59)
[2022-04-15] MEDS: Cyanocobalamin 500 MCG Tablet 1000 MCG PO (08:59)
[2022-04-15 09:11] VITALS: BP 124/67; PULSE 76; RESP 16; TEMP 36.6; O2SAT 100
--- NOTE | 2022-04-15 10:41 | CASEMGMT ---
TINY called [facility]. TINY asked for information on patient's VA status. Real said patient put in a humanitarian application and was denied. Real also said patient is not eligible for any VA services including medical care. There are numerous reasons for this, but she was not able to elaborate why he was not eligible. Patient's sister, Sharri was asking if she could talk with the doctor for an update. TINY did send a message to physician asking if she could call Sharri. TINY will work on a list of facilities that take patient's insurance. Eduarda Franklin INTERMISSION COORDINATOR XAVI
[2022-04-15] MEDS: Lactulose 20 GM/30 ML UDC PO ×2 (13:25→18:09)
[2022-04-15] MEDS: metroNIDAZOLE 500 MG Tablet PO ×2 (13:25→21:46)
--- NOTE | 2022-04-15 13:29 | TELEMED_ITS ---
[facility] Telemed has confirmed receipt of a request for visit. This document confirms receipt of the order initiating the consult. To find the results of the consultation, please view the patient's reports for the scanned Telemed Consult.
--- NOTE | 2022-04-15 14:36 | PN.HOSP_ITS ---
Subjective Subjective Patient seen and examined. HE is more oriented today and is actually able to answer questions. He has no active complaints and denies any fever, chills, cough, chest pain, palpitations, dizziness, nausea, vomiting or diarrhea. Review of systems is otherwise negative. Objective Data Objective Data Vital Signs: Vital Signs Temp Pulse Resp BP Pulse Ox O2 Del Method 97.9 F 76 16 124/67 H 100 Room Air 04/15/22 09:11 04/15/22 09:11 04/15/22 09:11 04/15/22 09:11 04/15/22 09:11 04/15/22 09:11 Oxygen Delivery Method Room Air Weight: 194 lb 3.636 oz Body Mass Index (BMI) 25.6 Intake & Output: Intake and Output for Last 24 Hours 04/13/22 04/14/22 04/15/22 23:59 23:59 23:59 Intake Total 360 / 360 50.2 / 50.2 350.2 / 350.2 Balance 360 / 360 50.2 / 50.2 350.2 / 350.2 Lab / Micro Data Result Diagrams: 04/15/22 05:25 04/15/22 05:25 Labs: Laboratory Results - last 24 hr 04/15/22 05:25: WBC 4.8, RBC 3.36 L, Hgb 9.8 L, Hct 29.7 L, MCV 88.4, MCH 29.2, MCHC 33.0, RDW Std Deviation 61.0 H, RDW Coeff of Kendall 18.9 H, Plt Count 212, MPV 10.3, Immature Gran % (Auto) 0.200, Neut % (Auto) 60.4, Lymph % (Auto) 28.5, M yoni % (Auto) 9.0, Eos % (Auto) 1.3, Baso % (Auto) 0.6, Absolute Neuts (auto) 2.9, Absolute Lymphs (auto) 1.37, Nucleated RBC % 0 04/15/22 05:25: Sodium 135 L, Potassium 3.3 L, Chloride 105, Carbon Dioxide 23.0, Anion Gap 7, BUN 4 L, Creatinine 0.70, Estim Creat Clear Calc 152.19, Est GFR (MDRD) Af Amer 156, Est GFR (MDRD) Non-Af 129, BUN/Creatinine Ratio 5.7 L, Glucose 109 H, Calcium 8.7 Micro: Microbiology 04/14/22 00:40 Stool Stool Occult Blood (GEORGE) - Final Occult Blood Positive Radiography Diagnostic Testing: Radiology Impression Brain MRI 04/14/22 13:34 IMPRESSION: No acute disease Electronically Signed: William Lassiter MD at 16:27 EST Reading Location ID and State: [address] [place] [address] , Service support , Physical Exam Const alert Constitutional Narrative: much more alert and communicative today HEENT head/scalp atraumatic, moist oral mucous membranes and oropharynx normal Head and Scalp: normocephalic Mouth: oral and palatal mucosa normal Eyes PERRL and EOMs intact bilaterally Neck no lymphadenopathy, supple and no JVD Resp normal respiratory effort, no retractions, no use of accessory muscles and clear to auscultation bilaterally Cardio regular rate, regular rhythm, S1 normal heart sound, S2 normal heart sound and no murmurs GI normal to inspection, nondistended, normoactive bowel sounds, soft to palpation, non-tender and non-distended Extremity normal to inspection, full ROM and no clubbing, cyanosis or edema Skin Skin Narrative: gynecomastia Neuro CN's II-XII intact bilaterally, moves all extremities and no focal motor deficits Neuro Narrative: more alert and communicative today Sensorium / Orientation: awake and alert Speech: speech normal Motor Exam: strength 5/5 throughout Psych Psych Narrative: confused Assessment & Plan Assessment/Plan (1) Alcoholic hepatitis: (2) Alcoholism: (3) Anemia: PLAN: Plan #Acute metabolic encephalopathy due to acute alcohol withdrawal * patient still confused and encephalopathic * completed phenobarb protocol. On ativan * MRI of the brain showed no acute intracranial pathology * neurology consulted * on multivites, folic acid and thiamine * on lactulose * ammonia level is 36 * fall precautions * #History of seizures: on keppra #Alcoholic hepatitis * gastroenterology on board * avoid hepatotoxic meds * no need for prednisone * liver USG showed hepatomegaly and fatty infiltrate of liver * #ANemia * Hb has improved. * thought to be due to low folate and liver pathology * will monitor hb * #Nicotine dependence: on nicotine patch DVT prophylaxis; SCDs Charges/Coding Visit Charges Inpatient E&M: 88424 Subs Hosp L2
[2022-04-15 15:00] VITALS: BP 117/80; PULSE 67; RESP 16; TEMP 36.7; O2SAT 100
--- NOTE | 2022-04-15 16:08 | CASEMGMT ---
TINY called patient's sister Sharri. TINY introduced self and role at [facility]. TINY let Sharri know that the physician plans on calling her after Neurology sees patient and gives recommendations. TINY let her know this will likely not be today. TINY also let Sharri know that SW called [facility] [place] and patient is not eligible for any services including medical care with the VA. TINY did explain SW has lists of facilities in her area and around this area. Sharri asked TINY to email them to her. TINY told her SW can do that. TINY will keep in touch with her. Eduarda Franklin J2EE DEVELOPER TOP LIFT AND AUTOMATIC WINDOW REPAIRER
[2022-04-16] MEDS: Lactulose 20 GM/30 ML UDC PO ×3 (05:28→19:39)
[2022-04-16] MEDS: metroNIDAZOLE 500 MG Tablet PO ×3 (05:28→21:12)
[2022-04-16 05:30] LABS: Absolute Lymphocyte Count 1.87 X10^3/uL (0.83-4.51); Absolute Neutrophil Count 3.2 X10^3/uL (2.0-7.7); Basophil# 0.05 X10^3/uL; Basophil% 0.9 % (0-1); Eosinophils% 1.7 % (0-5); Hematocrit 29.3 % (40-54); Hemoglobin 9.3 g/dL (13.0-16.5); Lymphocyte # 1.87 X10^3/ul (0.83-4.51); Lymphocyte % 32.2 % (19-41); Mean Corp Hgb Conc 31.7 g/dL (32-36); Mean Corpuscular Hgb 28.4 pg (27.0-32.0); Mean Corpuscular Volume 89.3 fL (80-94); Mean Platelet Vol. 10.5 fl (6.2-12.0); Monocyte% 10.3 % (0-10); NRBC Flagged by Analyzer 0 % (0-5); Neutrophil # 3.15 X10^3/uL (2.7-7.7); Neutrophil % 54.4 % (47-70); Platelet Count 197 K/mm3 (150-450); RBC Distribution Width CV 18.6 % (11.6-14.6); RBC Distribution Width SD 59.3 fl (35.1-43.9); Red Blood Count 3.28 M/mm3 (4.6-6.2); White Blood Count 5.8 K/mm3 (4.4-11.0)
[2022-04-16 05:57] LABS: Anion Gap 6 (5-15); BUN 3 mg/dL (7-18); BUN/Creat Ratio 4.2 RATIO (10-20); Calcium,Total 8.6 mg/dL (8.5-10.1); Chloride 105 mmol/L (98-107); Creatinine, Serum 0.71 mg/dL (0.70-1.30); EST Glomerular Filtration Rate 128 mL/min (>60); Est Glom Filt Rate - Afr Amer 155 mL/min (>60); Estimated Creatinine Clearance 150.05 ml/min; Glucose 118 mg/dL (74-106); Potassium 3.1 mmol/L (3.5-5.1); Sodium Level 135 mmol/L (136-145)
[2022-04-16 10:58] VITALS: BP 96/73; PULSE 86; RESP 16; TEMP 36.8; O2SAT 100
[2022-04-16] MEDS: 0.9% Saline Lock 10 ML Syringe IV (11:06)
[2022-04-16] MEDS: rifAXIMin 550 MG Tablet PO ×2 (11:25→21:12)
[2022-04-16] MEDS: Cyanocobalamin 500 MCG Tablet 1000 MCG PO (11:25)
[2022-04-16] MEDS: levETIRAcetam 500 MG Tablet PO ×2 (11:25→21:12)
[2022-04-16] MEDS: Thiamine Hydrochloride 100 MG Tablet PO (11:25)
[2022-04-16] MEDS: Potassium Chloride Oral Tablet 20 MEQ 40 MEQ PO (11:32)
--- NOTE | 2022-04-16 12:00 | PN.HOSP_ITS ---
Subjective Subjective Patient seen and examined. He feels much better today, and says he is very hungry and wants his diet advanced. He is awaiting neurology evaluation. Review of systems is otherwise negative. Objective Data Objective Data Vital Signs: Vital Signs Temp Pulse Resp BP Pulse Ox O2 Del Method 98.2 F 86 16 96/73 100 Room Air 04/16/22 10:58 04/16/22 10:58 04/16/22 10:58 04/16/22 10:58 04/16/22 10:58 04/16/22 10:58 Oxygen Delivery Method Room Air Weight: 194 lb 3.636 oz Body Mass Index (BMI) 25.6 Intake & Output: Intake and Output for Last 24 Hours 04/14/22 04/15/22 04/16/22 23:59 23:59 23:59 Intake Total 50.2 / 50.2 350.2 / 350.2 50.2 / 50.2 Balance 50.2 / 50.2 350.2 / 350.2 50.2 / 50.2 Lab / Micro Data Result Diagrams: 04/16/22 04:07 04/16/22 04:07 Labs: Laboratory Results - last 24 hr 04/16/22 04:07: WBC 5.8, RBC 3.28 L, Hgb 9.3 L, Hct 29.3 L, MCV 89.3, MCH 28.4, MCHC 31.7 L, RDW Std Deviation 59.3 H, RDW Coeff of Kendall 18.6 H, Plt Count 197, MPV 10.5, Immature Gran % (Auto) 0.500, Neut % (Auto) 54.4, Lymph % (Auto) 32.2, [place] % (Auto) 10.3 H, Eos % (Auto) 1.7, Baso % (Auto) 0.9, Absolute Neuts (auto) 3.2, Absolute Lymphs (auto) 1.87, Nucleated RBC % 0 04/16/22 04:07: Sodium 135 L, Potassium 3.1 L, Chloride 105, Carbon Dioxide 24.0, Anion Gap 6, BUN 3 L, Creatinine 0.71, Estim Creat Clear Calc 150.05, Est GFR (MDRD) Af Amer 155, Est GFR (MDRD) Non-Af 128, BUN/Creatinine Ratio 4.2 L, Glucose 118 H, Calcium 8.6 Micro: Microbiology 12/13/22 00:40 Stool Stool Occult Blood (GEORGE) - Final Occult Blood Positive Physical Exam Const alert and oriented x3 Constitutional Narrative: much more alert and communicative today Orientation / Consciousness: confused HEENT head/scalp atraumatic, moist oral mucous membranes and oropharynx normal Head and Scalp: normocephalic Mouth: oral and palatal mucosa normal Eyes PERRL, EOMs intact bilaterally and conjunctivae normal Neck no lymphadenopathy, supple and no JVD Resp normal respiratory effort, no retractions, no use of accessory muscles and clear to auscultation bilaterally Cardio regular rate, regular rhythm, S1 normal heart sound, S2 normal heart sound and no murmurs GI normal to inspection, nondistended, normoactive bowel sounds, soft to palpation, non-tender and non-distended Extremity normal to inspection, full ROM and no clubbing, cyanosis or edema Skin Skin Narrative: gynecomastia Neuro oriented x3, CN's II-XII intact bilaterally, moves all extremities and no focal motor deficits Neuro Narrative: more alert and communicative today Sensorium / Orientation: awake and alert Speech: speech normal Motor Exam: strength 5/5 throughout Psych affect normal Assessment & Plan Assessment/Plan (1) Alcoholic hepatitis: (2) Alcoholism: (3) Anemia: PLAN: Plan #Acute metabolic encephalopathy due to acute alcohol withdrawal * patient much more alert and communicative today. * completed phenobarb protocol. On ativan * MRI of the brain showed no acute intracranial pathology * neurology consulted; awaiting evaluation * on multivites, folic acid and thiamine * on lactulose * fall precautions * #History of seizures: on keppra #Alcoholic hepatitis * gastroenterology on board * avoid hepatotoxic meds * no need for prednisone * liver USG showed hepatomegaly and fatty infiltrate of liver * #ANemia * Hb has improved. * thought to be due to low folate and liver pathology * will monitor hb * #Nicotine dependence: on nicotine patch DVT prophylaxis; SCDs Charges/Coding Visit Charges Inpatient E&M: 16870 Subs Hosp L2
[2022-04-16 15:00] VITALS: BP 109/81; PULSE 71; RESP 16; TEMP 36.6; O2SAT 100
--- NOTE | 2022-04-16 15:18 | CASEMGMT ---
SW met with patient. SW introduced self and role at [facility]. SW asked patient how he is feeling and patient said he is better and ready to get out of here. Patient said he is embarrassed that he went the bathroom in the bed. SW asked patient if he is currently working anywhere and he is not. SW asked patient about his insurance if he pays for it monthly. Patient said he does not. He couldn't really explain how he got it. He said he was told he is approved for next year. He seems to think it is Medicaid, however it is not. SW let patient know SW spoke with the [facility] to see what services he is eligible for and they said he is not eligible for anything including medical services. Patient was surprised by this and said they were paying for his medication. Patient does not have a primary care doctor, but is open to SW giving him a list. Patient said he needs to get a doctor. SW asked how he is getting his Keppra. He said a Dr at [facility] prescribed it and there are 3 more refills. Patient said he needs to start eating better. He said he was drinking alcohol and not eating. SW asked patient if he would like resources to help him with quitting. Patient declined stating he can do it on his own. He said he does not want this to happen again. SW explained to patient that it is harder than he thinks to stop drinking alcohol and he is likely going to need help. SW mentioned Reinaldo, the pediatric clinical nurse specialist that spoke with him earlier. He said he has her card. SW recommended he check in with them and make an appt. SW asked if he would like to make an appt for him and he declined. SW asked patient about his plans at discharge. Patient plans to go live with his friend and his friend's girlfriend. He has a dog there that he needs to care for. Patient declines home health or any other services. SW then began asking questions to get him engaged and maybe open up a little bit. Patient did share some of his concerns and feelings. Patient did get a little tearful. SW let patient know it is okay to ask for help. Patient said it is hard because when he was in the [employer] it was seen as a weakness if you ask for help. SW listened and provided emotional support. Patient was open to SW giving him a list of primary care doctors and Neurologists. SW called patient's sister Sharri and let her know patient is walking 400' so he is not going to qualify to go to a penitentiary. TINY told Sharri SW spent some time with him. TINY let her know SW will get him a list of Neurologists and primary care doctor's that take his insurance. TINY will also see if there is some transportation help. She thanked SW for calling her. TINY went to give patient the primary care doctor and Neurologists information, but he was sleeping. TINY will get this to him tomorrow. Eduarda Franklin MSW XAVI
[2022-04-16 21:00] VITALS: BP 114/76; PULSE 86; RESP 16; TEMP 36.6; O2SAT 100
[2022-04-16 21:13] VITALS: BP 114/76; PULSE 84; RESP 16; TEMP 37; O2SAT 100
[2022-04-17] MEDS: Lactulose 20 GM/30 ML UDC PO ×2 (00:47→06:48)
[2022-04-17 03:00] VITALS: BP 95/65; PULSE 74; RESP 16; TEMP 36.9; O2SAT 98
[2022-04-17] MEDS: metroNIDAZOLE 500 MG Tablet PO (06:49)
[2022-04-17 06:56] LABS: Absolute Lymphocyte Count 1.93 X10^3/uL (0.83-4.51); Absolute Neutrophil Count 3.2 X10^3/uL (2.0-7.7); Basophil# 0.05 X10^3/uL; Basophil% 0.9 % (0-1); Eosinophil# 0.09 X10^3/uL; Eosinophils% 1.5 % (0-5); Hematocrit 28.9 % (40-54); Hemoglobin 9.1 g/dL (13.0-16.5); Lymphocyte # 1.93 X10^3/ul (0.83-4.51); Lymphocyte % 33.2 % (19-41); Mean Corp Hgb Conc 31.5 g/dL (32-36); Mean Corpuscular Hgb 28.5 pg (27.0-32.0); Mean Corpuscular Volume 90.6 fL (80-94); Monocyte# 0.56 X10^3/uL; Monocyte% 9.6 % (0-10); NRBC Flagged by Analyzer 0 % (0-5); Neutrophil # 3.17 X10^3/uL (2.7-7.7); Neutrophil % 54.5 % (47-70); Platelet Count 227 K/mm3 (150-450); RBC Distribution Width CV 18.2 % (11.6-14.6); RBC Distribution Width SD 58.9 fl (35.1-43.9); Red Blood Count 3.19 M/mm3 (4.6-6.2); White Blood Count 5.8 K/mm3 (4.4-11.0)
[2022-04-17 07:53] LABS: Anion Gap 7 (5-15); BUN 4 mg/dL (7-18); BUN/Creat Ratio 6.6 RATIO (10-20); Calcium,Total 8.5 mg/dL (8.5-10.1); Chloride 105 mmol/L (98-107); Creatinine, Serum 0.61 mg/dL (0.70-1.30); EST Glomerular Filtration Rate 152 mL/min (>60); Est Glom Filt Rate - Afr Amer 184 mL/min (>60); Estimated Creatinine Clearance 174.64 ml/min; Glucose 97 mg/dL (74-106); Potassium 3.4 mmol/L (3.5-5.1); Sodium Level 135 mmol/L (136-145)
[2022-04-17] MEDS: Cyanocobalamin 500 MCG Tablet 1000 MCG PO (08:39)
[2022-04-17] MEDS: Thiamine Hydrochloride 100 MG Tablet PO (08:40)
--- NOTE | 2022-04-17 09:10 | CASEMGMT ---
SW met with patient this am. SW provided patient with PCP and Neurology information as well as [facility] transportation assistance and [employer] transportation assistance. SW went over the lists with patient. SW explained that SW [place] the doctors [place] [facility] [place] that he could utilize [facility] for transport. There were also doctors in [place] on this list. However, SW does not have any transportation resources for [facility] since patient is not on Medicaid. SW also explained to patient the pamphlet from [facility] that they offer transportation to their appts as well. Patient declined to allow SW or secretary specialist to make any appts for him. Patient also said he will likely use his transportation resources he has and he also wants to follow up with the VA on status of his eligibility. Eduarda Franklin CASE MAKER XAVI
[2022-04-17 09:30] VITALS: BP 108/81; PULSE 78; RESP 16; TEMP 36.9; O2SAT 100
[2022-04-17] MEDS: levETIRAcetam 500 MG Tablet PO (09:33)
[2022-04-17] MEDS: rifAXIMin 550 MG Tablet PO (09:33)
--- NOTE | 2022-04-17 10:47 | DS.PCM_ITS ---
Providers Date of Admission: 04/07/22 Date of Discharge: 04/17/22 Primary Care Physician: Jaz Primary Care Phys Consultations 04/07/22 19:28 Consult: Gastroenterology Routine Consulting Provider: Juan Luis Boone Reason for Consult: anemia; hyperbilirubinemia EMERGENT Consult: No MD Notified: Yes Date Notified: 04/07/22 Time Notified: 19:33 Method of Notification: Text Reason For Visit: COPD EXACERBATION; ANEMIA Diagnosis Discharge Diagnosis (1) Alcoholic hepatitis: Status: Acute Code(s): K70.10 - Alcoholic hepatitis without ascites (2) Alcoholism: Status: Acute Code(s): F10.20 - Alcohol dependence, uncomplicated (3) Anemia: Status: Acute Code(s): D64.9 - Anemia, unspecified Plan #Acute metabolic encephalopathy due to acute alcohol withdrawal * patient much more alert and communicative today. * completed phenobarb protocol. On ativan * MRI of the brain showed no acute intracranial pathology * neurology consulted; awaiting evaluation * on multivites, folic acid and thiamine * on lactulose * fall precautions * #History of seizures: on keppra #Alcoholic hepatitis * gastroenterology on board * avoid hepatotoxic meds * no need for prednisone * liver USG showed hepatomegaly and fatty infiltrate of liver * #ANemia * Hb has improved. * thought to be due to low folate and liver pathology * will monitor hb * #Nicotine dependence: on nicotine patch DVT prophylaxis; SCDs Medications at Discharge Home Medications levetiracetam 500 mg tablet 500 mg PO BID seizures 08/14/20 lactulose 20 gram/30 mL oral solution 20 g (30 mL) PO TID #3,000 mL 04/17/22 rifaximin 550 mg tablet (Xifaxan) 550 mg PO BID #60 tabs 04/17/22 Hospital Course Operations None Procedures None Summary of Care Provided Minutes Spent on Discharge: 45 Hospital Course: Patient is a 46 y/o male with a PMH of chronic alcohol abuse, seizures due to traumatic brain injury and PTSD who was admitted from an outside hospital with a complaint of shortness of breath which worsened with mild exertion. He had associated lightheadedness and diaphoresis. Labs and hypomagnesemia and hypokalemia, and ammonia was elevated. Bilirubin was also elevated, and INR was 1.3. His hemoglobin was 6. He was admitted and managed for acute anemia due to acute alcohol withdrawal with elevated ammonia and hyperbilirubinemia as well as hypomagnesemia and hypokalemia. Electrolytes were replaced, and gastroenterology was consulted. He was placed on alcohol withdrawal protocol with phenobarbital. He also had elevated lactic acidosis which was thought to be due to liver disease. He was placed on lactulose. He was transfused with PRBCs. He was also managed for alcoholic hepatitis. Liver USG showed hepatomegaly and fatty infiltrate of liver. He was also placed on neomycin and flagyl as well as xifaxan. He remained confused, so neurology was consulted. He felt much better at that time. His mentation improved and he was dishcarged home on 04/17/2022. He remained stable, and was discharged home on 04/17/2022. He is to follow up with his PCP and gastroenterology within 1-2 weeks. Patient seen and examined prior to discharge. He had no active complaints and review of systems is otherwise negative. Labs and vitals reviewed. Home meds reviewed and reconciled. Physical Exam Const alert, oriented x3 and no apparent distress General Appearance: cooperative and comfortable Orientation / Consciousness: awake HEENT normocephalic, head/scalp atraumatic, hearing grossly normal bilaterally, moist oral mucous membranes and oropharynx normal Mouth: oral and palatal mucosa normal Eyes PERRL, EOMs intact bilaterally and conjunctivae normal Neck no lymphadenopathy, supple and no JVD Resp normal respiratory effort, no retractions, no use of accessory muscles and clear to auscultation bilaterally Cardio regular rate, regular rhythm, S1 normal heart sound, S2 normal heart sound and no murmurs GI normal to inspection, nondistended, normoactive bowel sounds, soft to palpation, non-tender and non-distended Extremity normal to inspection, full ROM and no clubbing, cyanosis or edema Skin no rashes or lesions noted Skin Narrative: gynecomastia Neuro oriented x3, CN's II-XII intact bilaterally, moves all extremities and no focal motor deficits Sensorium / Orientation: awake and alert Speech: speech normal Motor Exam: strength 5/5 throughout Psych affect normal Weight / BMI Weight Weight: 194 lb 3.636 oz Body Mass Index (BMI) 25.6 ABG / Lab / Microbiology Data Result Diagrams: 04/17/22 05:45 04/17/22 05:45 Laboratory: Laboratory Results - last 24 hr 04/17/22 05:45: WBC 5.8, RBC 3.19 L, Hgb 9.1 L, Hct 28.9 L, MCV 90.6, MCH 28.5, MCHC 31.5 L, RDW Std Deviation 58.9 H, RDW Coeff of Kendall 18.2 H, Plt Count 227, MPV 11.0, Immature Gran % (Auto) 0.300, Neut % (Auto) 54.5, Lymph % (Auto) 33.2, [place] % (Auto) 9.6, Eos % (Auto) 1.5, Baso % (Auto) 0.9, Absolute Neuts (auto) 3.2, Absolute Lymphs (auto) 1.93, Nucleated RBC % 0 04/17/22 05:45: Sodium 135 L, Potassium 3.4 L, Chloride 105, Carbon Dioxide 23.0, Anion Gap 7, BUN 4 L, Creatinine 0.61 L, Estim Creat Clear Calc 174.64, Est GFR (MDRD) Af Amer 184, Est GFR (MDRD) Non-Af 152, BUN/Creatinine Ratio 6.6 L, Glucose 97, Calcium 8.5 Microbiology: Microbiology 04/14/22 00:40 Stool Stool Occult Blood (GEORGE) - Final Occult Blood Positive D/C Instructions Discharge Diet: Low fat / Low cholesterol Weight Bearing Status: Weight bearing as tolerated Call your doctor if you observe: Fever of 101 or Higher, Shortness of breath, Dizziness, Swelling in the ankles, Chest pain and Increased palpitations (irregular heartbeat) Meaningful Use Info Meaningful Use Diagnoses (Choose all that apply): None applicable Discharge Plan Admission Admit Date/Time: 04/07/22 19:29 Primary Reason for Your Visit: acute alcohol withdrawal Attending Provider: Jessie Vidal Primary Care Provider: Care Physician,No Primary Consulting Providers: Juan Luis Boone ; Rand Gonzales ; Kyrie Villalobos Instructions Patient Instructions: Alcohol Withdrawal: What to Expect, ED Withdrawal Alcohol Additional Instructions / Restrictions: Patient Problems: Altered Health Status related to Hospitalization Patient Goals: *Optimal Level of Health *Keep Appointments *Medication Compliance *Remain Safe Discharge Orders/Prescriptions Prescriptions: New lactulose 20 gram/30 mL solution 20 g PO TID Qty: 3000 1RF Xifaxan 550 mg tablet 550 mg PO BID Qty: 60 1RF Continued levetiracetam 500 MG tablet 500 mg PO BID Referrals / Follow Up: Monroe Gaxiola MD [Med Staff - Active Staff] - 06/12/22 2:00 pm (see to establish PCP care) Juan Luis Boone DO [Med Staff - Active Staff] - 07/07/22 9:45 am Care Physician,No Primary [Primary Care Provider] - Disposition Disposition (needs filled in before D/C Order can be placed): Home, Self Care Charges/Coding Visit Charges Inpatient E&M: 03007 Disch Hosp
--- NOTE | 2022-04-17 10:47 | DCINST_ITS ---
Discharge Instructions Diet Discharge Diet: Low fat / Low cholesterol Activity Discharge Activity: Return to Normal Activity Weight Bearing Status: Weight bearing as tolerated Dressing / Incision Call your doctor if you observe: Fever of 101 or Higher, Shortness of breath, Dizziness, Swelling in the ankles, Chest pain and Increased palpitations (irregular heartbeat) Follow Up Care Test Results: Test results from this visit will be discussed in further detail at your follow- up appointment, if applicable. Discharge Plan Admission Admit Date/Time: 04/07/22 19:29 Primary Reason for Your Visit: acute alcohol withdrawal Attending Provider: Jessie Vidal Primary Care Provider: Care Physician,No Primary Consulting Providers: Juan Luis Boone ; Rand Gonzales ; Kyrie Villalobos Instructions Patient Instructions: Alcohol Withdrawal: What to Expect, ED Withdrawal Alcohol Discharge Orders/Prescriptions Prescriptions: Continued levetiracetam 500 MG tablet 500 mg PO BID Referrals / Follow Up: Monroe Gaxiola MD [Med Staff - Active Staff] - Within 1 Month (see to establish PCP care) Juan Luis Boone DO [Med Staff - Active Staff] - Within 2 Weeks Care Physician,No Primary [Primary Care Provider] - Disposition Disposition (needs filled in before D/C Order can be placed): Home, Self Care
--- NOTE | 2022-04-17 15:27 | NURSING ---
This RN called patient per MD request to let them know that there is a prescription that was not sent to the pharmacy prior to discharge. Pt did not answer phone so message was left to picker/puller prescription at [facility] retail pharmacy or have a family member pick it up if able and to call the PCU with any questions.
== END 2022-04-17 13:13 | disposition home or self-care (01) | DRG 811 ==
PROVIDERS: Family Medicine; Hospitalist; Admitting Provider Internal Medicine; Visit Provider Student in an Organized Health Care Education/Training Program
DX: D52.9 Folate deficiency anemia, unspecified (principal); G93.41 Metabolic encephalopathy; E87.20 Acidosis, unspecified; F10.239 Alcohol dependence with withdrawal, unspecified; K76.82 Hepatic encephalopathy; F10.20 Alcohol dependence, uncomplicated; K70.10 Alcoholic hepatitis without ascites; K76.0 Fatty (change of) liver, not elsewhere classified; G43.909 Migraine, unspecified, not intractable, without status migrainosus; F17.200 Nicotine dependence, unspecified, uncomplicated; E87.6 Hypokalemia; E80.7 Disorder of bilirubin metabolism, unspecified; E83.42 Hypomagnesemia; R79.1 Abnormal coagulation profile; Y90.0 Blood alcohol level of less than 20 mg/100 ml
CPT/HCPCS: 36415; 70450; 70553; 74177; 76705; 80048; 80053; 82140; 82274; 82607; 82746; 83010; 83540; 83550; 83605; 83615; 83735; 85014; 85018; 85025; 85045; 85610; 86850; 86900; 86901; 86920; 97110; 97162; 97166; 97530; 97535; 99406; A9575; J7040; P9016; Q9967; A4216; J3490